=== PATIENT | female | born 1985 | race Caucasian/White ===

== ENCOUNTER 2022-10-02 17:07 | Emergency (ER) | payer BC ==
[2022-10-02 17:37] VITALS: TEMP 98.7
[2022-10-02] MEDS ORDERED: ASPIRIN 81 MG PO STA (18:21)
--- NOTE | 2022-10-02 18:25 | ED ---
General Adult HPI - General Chief complaint: Chest Pain Stated complaint: chest pain Time Seen by Provider: 10/02/22 18:00 Source: patient, RN notes reviewed Mode of arrival: ambulatory Limitations: no limitations - History of Present Illness Initial comments: Patient is a pleasant 37-year-old female presenting to the emergency department with concerns for chest discomfort. Onset of symptoms was this morning. Patient has had multiple episodes of sharp stabbing chest discomfort lasting just a couple seconds. Patient states she has had overdoses been episodes. No associated dyspnea, nausea, or diaphoresis. No history of similar symptoms previously. No calf pain. No leg swelling. Currently patient is symptom-free. - Related Data Home Medications Medication Instructions Recorded Confirmed No Known Home Medications 10/02/22 10/02/22 Allergies Allergy/AdvReac Type Severity Reaction Status Date / Time Iodinated Contrast Media Allergy Rash/Hives Verified 10/02/22 17:57 Review of Systems ROS Statement: Those systems with pertinent positive or pertinent negative responses have been documented in the HPI. ROS Other: All systems not noted in ROS Statement are negative. Constitutional: Denies: fever Eyes: Denies: eye pain ENT: Denies: ear pain Respiratory: Reports: as per HPI. Denies: cough, dyspnea Cardiovascular: Reports: as per HPI. Denies: palpitations Endocrine: Denies: fatigue Gastrointestinal: Denies: abdominal pain Genitourinary: Denies: dysuria Musculoskeletal: Denies: back pain Skin: Denies: rash Neurological: Denies: weakness Past Medical History Additional Past Medical History / Comment(s): back pain History of Any Multi-Drug Resistant Organisms: None Reported Past Surgical History: Section Additional Past Surgical History / Comment(s): hole in heart repaired 2010 [facility] Past Psychological History: No Psychological Hx Reported Smoking Status: Former smoker Past Alcohol Use History: Occasional Past Drug Use History: None Reported General Exam Limitations: no limitations General appearance: alert, in no apparent distress Head exam: Present: normocephalic Eye exam: Present: normal appearance Neck exam: Present: normal inspection Respiratory exam: Present: normal lung sounds bilaterally. Absent: chest wall tenderness Cardiovascular Exam: Present: regular rate, normal rhythm Expanded Peripheral pulses: 2+: Radial (R), Radial (L), Dorsalis Pedis (R), Dorsalis Pedis (L) GI/Abdominal exam: Present: soft. Absent: tenderness Extremities exam: Present: normal inspection. Absent: pedal edema, calf tenderness Neurological exam: Present: alert Psychiatric exam: Present: normal affect, normal mood Skin exam: Present: normal color Course Vital Signs 10/02/22 10/02/22 10/02/22 17:30 17:45 18:41 Temperature 98.7 F Pulse Rate 92 99 Pulse Rate [ 78 Director Of Special Education ] Respiratory 18 16 Rate Blood Pressure 144/83 117/61 O2 Sat by Pulse 100 97 Oximetry EKG Findings - EKG Results: EKG: interpreted by JUDED (right axis), sinus rhythm, normal QRS, normal ST/T Medical Decision Making - Medical Decision Making Was pt. sent in by a medical professional or institution (, PA, WAGON DRILLER, urgent care, hospital, or fdc...) When possible be specific @ -[No] Did you speak to anyone other than the patient for history (EMS, parent, family, police, friend...)? What history was obtained from this source @ -[No] Did you review nursing and triage notes (agree or disagree)? Why? @ -[I reviewed and agree with nursing and triage notes] Were old charts reviewed (outside hosp., previous admission, EMS record, old EKG, old radiological studies, urgent care reports/EKG's, fdc records)? Report findings @ -[No old charts were reviewed] Differential Diagnosis (chest pain, altered mental status, abdominal pain women, abdominal pain men, vaginal bleeding, weakness, fever, dyspnea, syncope, headache, dizziness, GI bleed, back pain, seizure, CVA, palpatations, mental health, musculoskeletal)? @ -Differential Chest Pain: Stable Angina, Unstable Angina, STEMI, NSTEMI Aortic Dissection, Pneumothorax, Musculoskeletal, Esophageal Spasm GERD, Cholecystitis, Pancreatitis, Zoster, this is not meant to be an all-inclusive list. EKG interpreted by me (3pts min.). @ -[As above] X-rays interpreted by me (1pt min.). @ -Chest x-ray shows no acute process CT interpreted by me (1pt min.). @ -[None done] U/S interpreted by me (1pt. min.). @ -[None done] What testing was considered but not performed or refused? (CT, X-rays, U/S, la bs)? Why? @ -[None] What meds were considered but not given or refused? Why? @ -[None] Did you discuss the management of the patient with other professionals (professionals i.e. , PA, WAGON DRILLER, lab, RT, psych nurse, high school social studies teacher, manager of pmo, teacher, motor equipment commanding officer, bilingual patient support caseworker)? Give summary @ -[No] Was smoking cessation discussed for >3mins.? @ -[No] Was critical care preformed (if so, how long)? @ -[No] Were there social determinants of health that impacted care today? How? (Homelessness, low income, unemployed, alcoholism, drug addiction, transportation, low edu. Level, literacy, decrease access to med. care, penitentiary, rehab)? @ -[No] Was there de-escalation of care discussed even if they declined (Discuss DNR or withdrawal of care, Hospice)? DNR status @ -[No] What co-morbidities impacted this encounter? (DM, HTN, Smoking, COPD, CAD, Cancer, CVA, ARF, Chemo, Hep., AIDS, mental health diagnosis, sleep apnea, morbid obesity)? @ -[None] Was patient admitted / discharged? Hospital course, mention meds given and route, prescriptions, significant lab abnormalities, going to OR and other pe rtinent info. @ -Patient presents with atypical chest pain, feeling like electrical shock and lasting only seconds. Patient reevaluated and resting comfortably in bed, symptom-free. Patient updated on results and need for follow-up. Heart score 0. 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 Undiagnosed new problem with uncertain prognosis? @ -[No] Drug Therapy requiring intensive monitoring for toxicity (Heparin, Nitro, Insulin, Cardizem)? @ -[No] Were any procedures done? @ -[No] Diagnosis/symptom? @ -Chest pain Acute, or Chronic, or Acute on Chronic? @ -Acute Uncomplicated (without systemic symptoms) or Complicated (systemic symptoms)? @ -[default] Side effects of treatment? @ -[No] Exacerbation, Progression, or Severe Exacerbation? @ -[No] Poses a threat to life or bodily function? How? (Chest pain, USA, [place], pneumonia, PE, COPD, DKA, ARF, appy, cholecystitis, CVA, Diverticulitis, Homicidal, Suicidal, threat to staff... and all critical care pts) @ -[No] - Lab Data Result diagrams: 10/02/22 18:39 10/02/22 18:39 Lab Results 10/02/22 10/02/22 10/02/22 Range/Units 18:39 18:39 18:39 WBC 9.7 (3.8-10.6) k/uL RBC 5.25 (3.80-5.40) m/uL Hgb 15.7 (11.4-16.0) gm/dL Hct 45.1 (34.0-46.0) % MCV 86.0 (80.0-100.0) fL MCH 29.9 (25.0-35.0) pg MCHC 34.7 (31.0-37.0) g/dL RDW 12.7 (11.5-15.5) % Plt Count 319 (150-450) k/uL MPV 7.1 Neutrophils % 64 % Lymphocytes % 26 % Monocytes % 6 % Eosinophils % 2 % Basophils % 1 % Neutrophils # 6.2 (1.3-7.7) k/uL Lymphocytes # 2.5 (1.0-4.8) k/uL Monocytes # 0.5 (0-1.0) k/uL Eosinophils # 0.2 (0-0.7) k/uL Basophils # 0.1 (0-0.2) k/uL PT 10.0 (9.0-12.0) sec INR 0.9 (<1.2) APTT 26.0 (22.0-30.0) sec D-Dimer 0.42 (<0.60) mg/L FEU Sodium 139 (137-145) mmol/L Potassium 4.0 (3.5-5.1) mmol/L Chloride 104 (98-107) mmol/L Carbon Dioxide 25 (22-30) mmol/L Anion Gap 10 mmol/L BUN 11 (7-17) mg/dL Creatinine 0.62 (0.52-1.04) mg/dL Est GFR (CKD-EPI)AfAm >90 (>60 ml/min/1.73 sqM) Est GFR (CKD-EPI)NonAf >90 (>60 ml/min/1.73 sqM) Glucose 94 (74-99) mg/dL Calcium 9.7 (8.4-10.2) mg/dL Magnesium 2.0 (1.6-2.3) mg/dL Total Bilirubin 0.5 (0.2-1.3) mg/dL AST 29 (14-36) U/L ALT 28 (4-34) U/L Alkaline Phosphatase 107 (38-126) U/L Troponin I (0.000-0.034) ng/mL Total Protein 8.7 H (6.3-8.2) g/dL Albumin 4.9 (3.5-5.0) g/dL 10/02/22 Range/Units 18:39 WBC (3.8-10.6) k/uL RBC (3.80-5.40) m/uL Hgb (11.4-16.0) gm/dL Hct (34.0-46.0) % MCV (80.0-100.0) fL MCH (25.0-35.0) pg MCHC (31.0-37.0) g/dL RDW (11.5-15.5) % Plt Count (150-450) k/uL MPV Neutrophils % % Lymphocytes % % Monocytes % % Eosinophils % % Basophils % % Neutrophils # (1.3-7.7) k/uL Lymphocytes # (1.0-4.8) k/uL Monocytes # (0-1.0) k/uL Eosinophils # (0-0.7) k/uL Basophils # (0-0.2) k/uL PT (9.0-12.0) sec INR (<1.2) APTT (22.0-30.0) sec D-Dimer (<0.60) mg/L FEU Sodium (137-145) mmol/L Potassium (3.5-5.1) mmol/L Chloride (98-107) mmol/L Carbon Dioxide (22-30) mmol/L Anion Gap mmol/L BUN (7-17) mg/dL Creatinine (0.52-1.04) mg/dL Est GFR (CKD-EPI)AfAm (>60 ml/min/1.73 sqM) Est GFR (CKD-EPI)NonAf (>60 ml/min/1.73 sqM) Glucose (74-99) mg/dL Calcium (8.4-10.2) mg/dL Magnesium (1.6-2.3) mg/dL Total Bilirubin (0.2-1.3) mg/dL AST (14-36) U/L ALT (4-34) U/L Alkaline Phosphatase (38-126) U/L Troponin I <0.012 (0.000-0.034) ng/mL Total Protein (6.3-8.2) g/dL Albumin (3.5-5.0) g/dL Disposition Clinical Impression: Chest pain Disposition: HOME SELF-CARE Condition: Stable Instructions (If sedation given, give patient instructions): Chest Pain (ED) Additional Instructions: Please do follow-up to primary care physician in the next day or 2 for recheck. Please also follow-up with your roofing plant supervisor. Return for increased pain, [place] or worsening symptoms or any other concerns. Is patient prescribed a controlled substance at d/c from ED?: No Referrals: Len Eldridge MD [STAFF PHYSICIAN] - 1-2 days Randolph Machuca MD [STAFF PHYSICIAN] - 1-2 days Time of Disposition: 19:50
--- NOTE | 2022-10-02 18:54 | XR ---
EXAMINATION TYPE: XR chest 2V DATE OF EXAM: 10/02/2022 6:50 PM COMPARISON: None TECHNIQUE: XR chest 2V . CLINICAL INDICATION:Female, 37 years old with history of Chest Pain; FINDINGS: Lungs/Pleura: There is no evidence of pleural effusion, focal consolidation, or pneumothorax. Pulmonary vascularity: Unremarkable. Heart/mediastinum: Cardiomediastinal silhouette is unremarkable. Musculoskeletal: Multiple level degenerative disc disease changes seen throughout the spine. IMPRESSION: No acute cardiopulmonary disease/process.
[2022-10-02 19:14] LABS: INR 0.9 (<1.2)
[2022-10-02 19:15] LABS: ALT 28 U/L (4-34); AST 29 U/L (14-36); African American GFR (CKD) >90 (>60 ml/min/1.73 sqM); Albumin 4.9 g/dL (3.5-5.0); Alkaline Phosphatase 107 U/L (38-126); Anion Gap 10 mmol/L; Blood Urea Nitrogen 11 mg/dL (7-17); Calcium 9.7 mg/dL (8.4-10.2); Carbon Dioxide 25 mmol/L (22-30); Chloride 104 mmol/L (98-107); Glucose 94 mg/dL (74-99); Non-African American GFR(CKD) >90 (>60 ml/min/1.73 sqM); Sodium 139 mmol/L (137-145); Total Bilirubin 0.5 mg/dL (0.2-1.3); Total Protein 8.7 g/dL (6.3-8.2)
[2022-10-02 19:29] LABS: Basophils # (A) 0.1 k/uL (0-0.2); Basophils % (A) 1 %; Eosinophils # (A) 0.2 k/uL (0-0.7); Eosinophils % (A) 2 %; HCT 45.1 % (34.0-46.0); HGB 15.7 gm/dL (11.4-16.0); Lymphocytes # (A) 2.5 k/uL (1.0-4.8); Lymphocytes % (A) 26 %; MCH 29.9 pg (25.0-35.0); MCHC 34.7 g/dL (31.0-37.0); Mean Platelet Volume 7.1; Monocytes # (A) 0.5 k/uL (0-1.0); Monocytes % (A) 6 %; Neutrophils # (A) 6.2 k/uL (1.3-7.7); Neutrophils % (A) 64 %; Platelet Count 319 k/uL (150-450); RBC 5.25 m/uL (3.80-5.40); RDW 12.7 % (11.5-15.5); WBC 9.7 k/uL (3.8-10.6)
[2022-10-02 20:23] VITALS: BP 104/66; PULSE 94; RESP 18
== END 2022-10-02 20:23 | disposition home or self-care (01) ==
LOC: EC 17:07
DX: R07.89 Other chest pain (principal); Z87.891 Personal history of nicotine dependence; Z91.041 Radiographic dye allergy status
CPT/HCPCS: 36415; 71046; 80053; 83735; 84484; 85025; 85379; 85610; 85730; 93005; 99285

== ENCOUNTER 2022-11-02 08:16 | Emergency (ER) | payer BC ==
[2022-11-02] MEDS ORDERED: ACETAMINOPHEN TAB 500 MG TAB PO STA (08:41)
--- NOTE | 2022-11-02 08:51 | ED ---
General Adult HPI - General Chief complaint: Fever Stated complaint: High Heart Rate, Flu Symptoms Time Seen by Provider: 11/02/22 08:20 Source: patient, RN notes reviewed, old records reviewed Mode of arrival: ambulatory Limitations: no limitations - History of Present Illness Initial comments: This is a 37-year-old female presents emergency department stating that for the last 2 days she's had a sore throat and a bit of a cough. Patient states she's also felt that she's had fever heart rate was 120 earlier today per patient states she took Motrin prior to coming in. Patient states her daughter was diagnosed with influenza on Saturday and she thinks she has the flu as well. Patient states she's never had the flu or cold in the past. Patient denies any shortness of breath or difficulty breathing. Patient denies any abdominal pain palpitations nausea or vomiting. - Related Data Home Medications Medication Instructions Recorded Confirmed No Known Home Medications 10/02/22 10/02/22 Allergies Allergy/AdvReac Type Severity Reaction Status Date / Time Iodinated Contrast Media Allergy Rash/Hives Verified 11/02/22 08:23 Review of Systems ROS Statement: Those systems with pertinent positive or pertinent negative responses have been documented in the HPI. ROS Other: All systems not noted in ROS Statement are negative. Past Medical History Additional Past Medical History / Comment(s): back pain History of Any Multi-Drug Resistant Organisms: None Reported Past Surgical History: Section Additional Past Surgical History / Comment(s): hole in heart repaired 2010 [facility] Past Psychological History: No Psychological Hx Reported Smoking Status: Former smoker Past Alcohol Use History: Occasional Past Drug Use History: None Reported General Exam - General Exam Comments Initial Comments: GENERAL: Patient is well-developed and well-nourished. Patient is nontoxic and well- hydrated and is in mild distress. ENT: Neck is soft and supple. No significant lymphadenopathy is noted. Oropharynx is clear. Moist mucous membranes. Neck has full range of motion without eliciting any pain. EYES: The sclera were anicteric and conjunctiva were pink and moist. Extraocular movements were intact and pupils were equal round and reactive to light. Eyelids were unremarkable. PULMONARY: Unlabored respirations. Good breath sounds bilaterally. No audible rales rhonchi or wheezing was noted. CARDIOVASCULAR: There is a regular rate and rhythm without any murmurs gallops or rubs. ABDOMEN: Soft and nontender with normal bowel sounds. SKIN: Skin is clear with no lesions or rashes and otherwise unremarkable. NEUROLOGIC: Patient is alert and oriented x3. Cranial nerves II through XII are grossly intact. Motor and sensory are also intact. Normal speech, volume and content. Symmetrical smile. Cerebellar exam grossly intact. MUSCULOSKELETAL: Normal extremities with adequate strength and full range of motion. LYMPHATICS: No significant lymphadenopathy is noted PSYCHIATRIC: Normal psychiatric evaluation. Limitations: no limitations Course Vital Signs 11/02/22 11/02/22 08:17 09:56 Temperature 99.6 F 98.3 F Pulse Rate 123 H 108 H Respiratory 18 19 Rate Blood Pressure 109/76 107/74 O2 Sat by Pulse 96 96 Oximetry Medical Decision Making - Medical Decision Making Was pt. sent in by a medical professional or institution (, PA, CARE ADVOCATE, urgent care, hospital, or skilled nursing...) When possible be specific @ -No Did you speak to anyone other than the patient for history (EMS, parent, family, police, friend...)? What history was obtained from this source @ -No Did you review nursing and triage notes (agree or disagree)? Why? @ -I reviewed and agree with nursing and triage notes Were old charts reviewed (outside hosp., previous admission, EMS record, old EKG, old radiological studies, urgent care reports/EKG's, skilled nursing records)? Report findings @ -No old charts were reviewed Differential Diagnosis (chest pain, altered mental status, abdominal pain women, abdominal pain men, vaginal bleeding, weakness, fever, dyspnea, syncope, headache, dizziness, GI bleed, back pain, seizure, CVA, palpatations, mental health, musculoskeletal)? @ -COVID, influenza, upper respiratory infection EKG interpreted by me (3pts min.). @ -As above X-rays interpreted by me (1pt min.). @ -Chest X-ray showed no acute abnormality CT interpreted by me (1pt min.). @ -None done U/S interpreted by me (1pt. min.). @ -None done What testing was considered but not performed or refused? (CT, X-rays, U/S, labs)? Why? @ -None What meds were considered but not given or refused? Why? @ -None Did you discuss the management of the patient with other professionals (professionals i.e. , PA, CARE ADVOCATE, lab, RT, psych nurse, social science instructor, bus info consultant, teacher, police patrol officer, case assembler)? Give summary @ -No Was smoking cessation discussed for >3mins.? @ -No Was critical care preformed (if so, how long)? @ -No Were there social determinants of health that impacted care today? How? (Homelessness, low income, unemployed, alcoholism, drug addiction, transportation, low edu. Level, literacy, decrease access to med. care, intermediate, rehab)? @ -No Was there de-escalation of care discussed even if they declined (Discuss DNR or withdrawal of care, Hospice)? DNR status @ -No What co-morbidities impacted this encounter? (DM, HTN, Smoking, COPD, CAD, Cancer, CVA, ARF, Chemo, Hep., AIDS, mental health diagnosis, sleep apnea, morbid obesity)? @ -None Was patient admitted / discharged? Hospital course, mention meds given and route, prescriptions, significant lab abnormalities, going to OR and other pertinent info. @ -Influenza a was positive. Patient's chest x-ray showed no acute abnormality. Patient was given Tylenol emergency department. Undiagnosed new problem with uncertain prognosis? @ -No Drug Therapy requiring intensive monitoring for toxicity (Heparin, Nitro, Insulin, Cardizem)? @ -No Were any procedures done? @ -No Diagnosis/symptom? @ -Influenza A Acute, or Chronic, or Acute on Chronic? @ -Acute Uncomplicated (without systemic symptoms) or Complicated (systemic symptoms)? @ -Uncomplicated Side effects of treatment? @ -No Exacerbation, Progression, or Severe Exacerbation? @ -No Poses a threat to life or bodily function? How? (Chest pain, USA, [place], pneumonia, PE, COPD, DKA, ARF, appy, cholecystitis, CVA, Diverticulitis, Homicidal, Suicidal, threat to staff... and all critical care pts) @ -No - Lab Data Lab Results 11/02/22 Range/Units 08:40 Influenza Type A (PCR) Detected A (Not Detectd) Influenza Type B (PCR) Not Detected (Not Detectd) RSV (PCR) Not Detected (Not Detectd) SARS-CoV-2 (PCR) Not Detected (Not Detectd) Disposition Clinical Impression: Influenza Disposition: HOME SELF-CARE Condition: Good Instructions (If sedation given, give patient instructions): Influenza (ED) Is patient prescribed a controlled substance at d/c from ED?: No Referrals: Cyril Villar MD [Primary Care Provider] - 1-2 days Time of Disposition: 10:04
--- NOTE | 2022-11-02 09:14 | XR ---
EXAMINATION TYPE: XR chest 2V DATE OF EXAM: 11/02/2022 COMPARISON: 10/02/2022 TECHNIQUE: PA and lateral views submitted. HISTORY: Fever FINDINGS: The lungs are clear and there is no pneumothorax, pleural effusion, or focal pneumonia. Heart size normal and no overt failure. Osseous structures demonstrate hypertrophic and degenerative changes of the spine. Postsurgical change involving the heart is stable. There is a linear calcification in the right lung. IMPRESSION: 1. No acute process.
[2022-11-02 09:57] VITALS: BP 107/74; PULSE 108; RESP 19; TEMP 98.3
== END 2022-11-02 10:16 | disposition home or self-care (01) ==
LOC: EC 08:16
DX: J10.1 Influenza due to other identified influenza virus with other respiratory manifestations (principal); Z87.891 Personal history of nicotine dependence; Z91.041 Radiographic dye allergy status; Z20.822 Contact with and (suspected) exposure to COVID-19
CPT/HCPCS: 71046; 87636; 99283

== ENCOUNTER 2023-06-23 07:57 | Observation (INO) | payer BC ==
--- NOTE | 2023-06-23 08:27 | ED ---
Chest Pain HPI - General Chief Complaint: Chest Pain Stated Complaint: chest pain Time Seen by Provider: 06/23/23 08:06 Source: patient, RN notes reviewed Mode of arrival: ambulatory Limitations: no limitations - History of Present Illness Initial Comments: 37-year-old female presents emergency department chief complaint of chest pressure. She states she has had some intermittent episodes over the last 4 to 5 hours. Patient states that it is central left-sided she had some achiness in her left arm and achiness of her arm and heaviness. Patient states that this pain awoke her up out of her sleep. Patient states that nothing makes the pain feel better or worse. States pain otherwise nonradiating she denies any prior cardiac disease including hypertension, hyperlipidemia diabetes she does not take any current medication she did take an 81 mg aspirin this morning because of the symptoms. She states she drove back from [place] yesterday and was concerned that she had some left calf pain. She denies any history of DVT or PE. - Related Data Home Medications Medication Instructions Recorded Confirmed No Known Home Medications 10/02/22 10/02/22 Allergies Allergy/AdvReac Type Severity Reaction Status Date / Time Iodinated Contrast Media Allergy Rash/Hives Verified 06/23/23 08:17 Review of Systems ROS Statement: Those systems with pertinent positive or pertinent negative responses have been documented in the HPI. ROS Other: All systems not noted in ROS Statement are negative. EKG Findings - EKG Comments: EKG Findings:: EKG performed at 8: 24 sinus rhythm with a rate of 84 VA 205 QRS 82 QT/QTc 365/407 inverted T wave in V2 - EKG Results: EKG: interpreted by MUSTAPHA Past Medical History Additional Past Medical History / Comment(s): back pain History of Any Multi-Drug Resistant Organisms: None Reported Past Surgical History: Section Additional Past Surgical History / Comment(s): hole in heart repaired 2010 [facility] Past Psychological History: No Psychological Hx Reported Smoking Status: Vaper Past Alcohol Use History: Occasional Past Drug Use History: None Reported General Exam Limitations: no limitations General appearance: alert, in no apparent distress Head exam: Present: atraumatic, normocephalic, normal inspection Eye exam: Present: normal appearance, PERRL, EOMI. Absent: scleral icterus, conjunctival injection, periorbital swelling Neck exam: Present: normal inspection, full ROM. Absent: tenderness, meningismus, lymphadenopathy Respiratory exam: Present: normal lung sounds bilaterally. Absent: respiratory distress, wheezes, rales, rhonchi, stridor Cardiovascular Exam: Present: regular rate, normal rhythm, normal heart sounds. Absent: systolic murmur, diastolic murmur, rubs, gallop, clicks GI/Abdominal exam: Present: soft, normal bowel sounds. Absent: distended, tenderness, guarding, rebound, rigid Extremities exam: Absent: pedal edema, calf tenderness Neurological exam: Present: alert, oriented X3 Skin exam: Present: warm, dry, intact, normal color. Absent: rash Course Vital Signs 06/23/23 06/23/23 06/23/23 08:14 08:22 10:12 Temperature 98 F Pulse Rate 88 95 Pulse Rate [ 84 Stepdown Nurse ] Respiratory 18 16 Rate Blood Pressure 110/77 120/82 O2 Sat by Pulse 98 Oximetry Chest Pain MDM - MDM Was pt. sent in by a medical professional or institution (, PA, COMPONENT DESIGN ENGINEER, urgent care, hospital, or prison...) When possible be specific @ -No Did you speak to anyone other than the patient for history (EMS, parent, family, police, friend...)? What history was obtained from this source @ -No Did you review nursing and triage notes (agree or disagree)? Why? @ -I reviewed and agree with nursing and triage notes Were old charts reviewed (outside hosp., previous admission, EMS record, old EKG, old radiological studies, urgent care reports/EKG's, prison records)? Report findings @ -No old charts were reviewed Differential Diagnosis (chest pain, altered mental status, abdominal pain women, abdominal pain men, vaginal bleeding, weakness, fever, dyspnea, syncope, headache, dizziness, GI bleed, back pain, seizure, CVA, palpatations, mental health, musculoskeletal)? @ -Differential Chest Pain: Stable Angina, Unstable Angina, STEMI, NSTEMI Aortic Dissection, Pneumothorax, M usculoskeletal, Esophageal Spasm GERD, Cholecystitis, Pancreatitis, Zoster, this is not meant to be an all-inclusive list. EKG interpreted by me (3pts min.). @ -As above X-rays interpreted by me (1pt min.). @ -Chest x-ray shows no acute cardiopulmonary process. CT interpreted by me (1pt min.). @ -CT angio chest shows no acute PE or acute malady. U/S interpreted by me (1pt. min.). @ -None done What testing was considered but not performed or refused? (CT, X-rays, U/S, labs)? Why? @ -None What meds were considered but not given or refused? Why? @ -None Did you discuss the management of the patient with other professionals (professionals i.e. DrKathy, PA, COMPONENT DESIGN ENGINEER, lab, RT, psych nurse, social work specialist, tail end rider, teacher, motorcycle police officer, corrections caseworker)? Give summary @ -Dr. Dominguez for admission for chest pain rule out Was smoking cessation discussed for >3mins.? @ -No Was critical care preformed (if so, how long)? @ -No Were there social determinants of health that impacted care today? How? (Homelessness, low income, unemployed, alcoholism, drug addiction, transportation, low edu. Level, literacy, decrease access to med. care, longterm, rehab)? @ -No Was there de-escalation of care discussed even if they declined (Discuss DNR or withdrawal of care, Hospice)? DNR status @ -No What co-morbidities impacted this encounter? (DM, HTN, Smoking, COPD, CAD, Cancer, CVA, ARF, Chemo, Hep., AIDS, mental health diagnosis, sleep apnea, morbid obesity)? @ -Family cardiac history Was patient admitted / discharged? Hospital course, mention meds given and route, prescriptions, significant lab abnormalities, going to OR and other pertinent info. @ -Admitted patient be admitted for echocardiogram, cardiology evaluation, repeat troponin as she has a concerning ACS story patient will have full workup and rule out. Undiagnosed new problem with uncertain prognosis? @ -No Drug Therapy requiring intensive monitoring for toxicity (Heparin, Nitro, Insulin, Cardizem)? @ -No Were any procedures done? @ -No Diagnosis/symptom? @ -Chest pain Acute, or Chronic, or Acute on Chronic? @ -Acute Uncomplicated (without systemic symptoms) or Complicated (systemic symptoms)? @ -Complicated Side effects of treatment? @ -No Exacerbation, Progression, or Severe Exacerbation? @ -No Poses a threat to life or bodily function? How? (Chest pain, [place], [place], pneumonia, PE, COPD, DKA, ARF, appy, cholecystitis, CVA, Diverticulitis, Homicidal, Suicidal, threat to staff... and all critical care pts) @ -Yes possible underlying ACS Disposition Clinical Impression: Chest pain Disposition: ADMITTED IP TO THIS HOSP Referrals: Cyril Villar MD [Primary Care Provider] - 1-2 days Time of Disposition: 12:26
[2023-06-23] MEDS: ASPIRIN 81 MG PO STA (08:42)
[2023-06-23 08:50] LABS: Basophils # (A) 0.1 k/uL (0-0.2); Basophils % (A) 1 %; Eosinophils # (A) 0.2 k/uL (0-0.7); Eosinophils % (A) 3 %; HCT 41.3 % (34.0-46.0); HGB 14.2 gm/dL (11.4-16.0); Lymphocytes # (A) 1.9 k/uL (1.0-4.8); Lymphocytes % (A) 32 %; MCH 29.7 pg (25.0-35.0); MCHC 34.3 g/dL (31.0-37.0); MCV 86.5 fL (80.0-100.0); Mean Platelet Volume 7.1; Monocytes # (A) 0.5 k/uL (0-1.0); Monocytes % (A) 8 %; Neutrophils # (A) 3.1 k/uL (1.3-7.7); Neutrophils % (A) 53 %; Platelet Count 386 k/uL (150-450); RBC 4.77 m/uL (3.80-5.40); WBC 5.9 k/uL (3.8-10.6)
[2023-06-23 09:05] LABS: Partial Thromboplastin Time 26.3 sec (22.0-30.0); Prothrombin Time 10.7 sec (10.0-12.5)
--- NOTE | 2023-06-23 09:05 | XR ---
EXAMINATION TYPE: XR chest 2V DATE OF EXAM: 06/23/2023 COMPARISON: 11/02/2022 HISTORY: Chest pain TECHNIQUE: Frontal and lateral views of the chest are obtained. FINDINGS: There is no focal air space opacity. No evidence for pneumothorax. No pleural effusion. The cardiac silhouette size is within normal limits. The osseous structures are grossly intact. IMPRESSION: 1. No acute cardiopulmonary process.
[2023-06-23 09:18] LABS: ALT 70 U/L (4-34); AST 50 U/L (14-36); African American GFR (CKD) >90 (>60 ml/min/1.73 sqM); Albumin 4.2 g/dL (3.5-5.0); Alkaline Phosphatase 81 U/L (38-126); Anion Gap 6 mmol/L; Blood Urea Nitrogen 10 mg/dL (7-17); Calcium 9.3 mg/dL (8.4-10.2); Carbon Dioxide 27 mmol/L (22-30); Chloride 107 mmol/L (98-107); Glucose 97 mg/dL (74-99); Non-African American GFR(CKD) >90 (>60 ml/min/1.73 sqM); Potassium 4.3 mmol/L (3.5-5.1); Sodium 140 mmol/L (137-145); Total Bilirubin 0.5 mg/dL (0.2-1.3); Total Protein 7.3 g/dL (6.3-8.2)
[2023-06-23 09:25] LABS: NT-Pro-B-Type Natriuretic Pept 97 pg/mL
--- NOTE | 2023-06-23 09:40 | US ---
EXAMINATION TYPE: US venous doppler duplex LE LT DATE OF EXAM: 06/23/2023 9:31 AM COMPARISON: US CLINICAL INDICATION: Female, 37 years old with history of pain; Left calf pain SIDE PERFORMED: Left TECHNIQUE: The lower extremity deep venous system is examined utilizing real time linear array sonog rita with graded compression, doppler sonography and color-flow sonography. VESSELS IMAGED: Common Femoral Vein Deep Femoral Vein Greater Saphenous Vein * Femoral Vein Popliteal Vein Small Saphenous Vein * Proximal Calf Veins (* superficial vessels) Left Leg: Negative for DVT IMPRESSION: Grayscale, color doppler, spectral doppler imaging performed of the deep veins of the lo wer extremities. There is normal flow, compressibility, vascular waveforms.
[2023-06-23] MEDS: methylPREDNISolone SOD SUCCI 125 MG/2 ML VIAL IV STA (10:14)
[2023-06-23] MEDS: diphenhydrAMINE 50 MG/ML 1 ML VIAL IVP STA (10:15)
[2023-06-23] MEDS: FAMOTIDINE 20 MG/2 ML VIAL IV STA (10:16)
--- NOTE | 2023-06-23 12:09 | CT ---
EXAMINATION TYPE: CT chest angio for PE CT DLP: 229.2 mGycm, Automated exposure control for dose reduction was used. DATE OF EXAM: 06/23/2023 11:46 AM COMPARISON: None. CLINICAL INDICATION:Female, 37 years old with history of pain, elevated D-dimer; Pain, Elevated D-Dim er TECHNIQUE/CONTRAST: CTA scan of the thorax is performed without and with IV Contrast, patient injected with 50 ml mL of I sovue 370, MIP images are created and reviewed these are created on a separate workstation.. FINDINGS: Pulmonary Artery: There is no evidence for a filling defect within the pulmonary vasculature to sugge st acute pulmonary embolism. The pulmonary artery is of normal size. Lungs/Pleura: No evidence of focal consolidation, pleural effusion or pneumothorax. Airway: Large airways are patent. Heart: Heart is within normal limits for size. Vasculature: No evidence of aortic aneurysm. Mediastinum: No gross evidence of adenopathy. Musculoskeletal: No acute osseous abnormalities Soft Tissues: Unremarkable. Lower neck: No significant findings. Upper Abdomen: No significant findings. IMPRESSION: No evidence of pulmonary embolism.
[2023-06-23] MEDS ORDERED: NITROGLYCERIN SL TABS 0.4 MG TAB SUBLINGUAL PRN (12:25)
--- NOTE | 2023-06-23 15:39 | P.HPIM ---
History of Present Illness H&P Date: 06/23/23 History of Presenting Illness: Patient is a very pleasant 37-year-old female with a past medical history of PFO status postrepair in 2010 and isolated episode of SVT in 2019. She follows with [facility] out of [facility]. She presented to the emergency department with a chief complaint of chest pain/pressure. Patient reports this began around 2 AM awakening her from sleep with a feeling of a sudden squeezing/pressure sensation deep into her left chest accompanied by left arm pain and heaviness. Patient reports she got up and drink some water and repo sitioned herself a bit in bed and was able to fall back asleep but again awoken with this same pain/discomfort so she got up and took an aspirin. She denies anything making this pain better or worse and denies any other associated symptoms other than the left arm achiness and heaviness. She denies having dizziness, lightheadedness, palpitations, shortness of breath, cough or congestion, abdominal pain, nausea, vomiting, or experiencing any numbness/tingling/weakness/swelling in her extremities. She does report just returning from vacation in [place] [facility] and during this vacation also having episodes of chest pain/pressure similar to this but not as severe. Patient reports she was evaluated at a facility there and diagnosed with costochondritis but states the pain she is experiencing today is much worse and deeper inside of her chest and describes it as a pressure-like squeezing sensation so she came to the ER for evaluation. Upon arrival to our facility patient underwent evaluation in the emergency department. Vital signs upon arrival show blood pressure 110/77, heart rate 88, respiratory rate 18, temp 98.0 F, and SpO2 of 98% on room air. EKG completed showing normal sinus rhythm at 84 bpm with no noted T wave or ST abnormalities showing no signs of acute ischemia upon personal review and interpretation. Chest x-ray was negative for acute cardiopulmonary process. Left lower extremity Doppler negative for DVT. Labs were completed and reviewed. CBC was unremarkable. BMP normal findings. Liver profile showing elevated AST of 50 and ALT of 70. Troponin was negative at less than 0.012. proBNP 97. D-dimer was elevated at 0.64. CTA chest then completed negative for acute pulmonary emboli. Patient was admitted under our services with consultation to cardiology. Review of systems: Pertinent positives and negatives as discussed in HPI, a complete review of systems was performed and all other systems are negative. Physical exam: Vital signs reviewed and stable. General: Nontoxic, no distress and appears stated age. Derm: Skin warm and dry, normal coloration for ethnicity. Head: Atraumatic, normocephalic and symmetric. Eyes: EOMs intact, no lid lag, and anicteric sclera Mouth: no lip lesions, mucus membranes moist Cardiovascular: regular rate and rhythm with normal S1S2, no murmur, positive posterior tibial pulses bilaterally, and cap refill < 2 seconds. Lungs: Respirations even, regular, and unlabored on room air. Lungs CTA bilate rally, no rhonchi, no rales, no wheezing, and no accessory muscle usage. Abdominal: soft, nontender to palpation, no guarding, no appreciable organomegaly Ext: ROM intact. No gross muscle atrophy, no edema, no contractures Neuro: Speech clear, face symmetrical and CN II-XII grossly intact with no noted focal neuro deficits Psych: Alert and oriented to person, place, time, and situation. Appropriate and pleasant affect. Assessment and Plan of Care: Chest pain, rule out acute coronary event Elevated D-dimer, PE ruled out History of PFO status postrepair History of SVT -Cardiology consulted, appreciate recommendations -Telemetry monitoring -Trend troponins -Cardiac diet -Aspirin 81 mg daily -Lipid profile with a.m. labs. -Echocardiogram -Obtain a TSH with free T4 The patient is admitted with an anticipated less than 2 midnight stay for evaluation of chest pain CODE STATUS: Full code DVT prophylaxis: Heparin Anticipated discharge date: Likely within the next [address]: Home Patient was seen independently by Nurse Practitioner. This document was prepared using [employer] dictation software. Please allow for errors in bridge inspector while rare they do occur. I reviewed the documentation as provided by the ALANA above, who is the original author of this note. I agree with the documented assessment and plan, with the following changes: none Past Medical History Additional Past Medical History / Comment(s): back pain History of Any Multi-Drug Resistant Organisms: None Reported Past Surgical History: Section Additional Past Surgical History / Comment(s): hole in heart repaired 2010 [facility] Past Psychological History: No Psychological Hx Reported Smoking Status: Vaper Past Alcohol Use History: Occasional Past Drug Use History: None Reported Medications and Allergies Home Medications Medication Instructions Recorded Confirmed Type No Known Home Medications 10/02/22 06/23/23 History Allergies Allergy/AdvReac Type Severity Reaction Status Date / Time Iodinated Contrast Media Allergy Rash/Hives Verified 06/23/23 12:54 Physical Exam Osteopathic Statement: *. No significant issues noted on an osteopathic structural exam other than those noted in the History and Physical/Consult. Vitals: Vital Signs Temp Pulse Pulse Resp BP Pulse Ox 06/23/23 13:18 102 H 14 118/81 96 06/23/23 10:12 95 16 120/82 06/23/23 08:22 84 06/23/23 08:14 98 F 88 18 110/77 98 Intake and Output 06/22/23 06/23/23 06/23/23 22:59 06:59 14:59 Other: Weight 61.689 kg Results CBC & Chem 7: 06/23/23 08:40 06/23/23 08:40 Labs: Abnormal Lab Results - Last 24 Hours (Table) 06/23/23 06/23/23 Range/Units 08:40 08:40 D-Dimer 0.64 H (<0.60) mg/L FEU AST 50 H (14-36) U/L ALT 70 H (4-34) U/L
[2023-06-23] MEDS: HEPARIN SODIUM,PORCINE 5,000 UNIT/ML 1 ML VIAL SQ SCH (17:16)
[2023-06-23] MEDS: KETOROLAC 15 MG/ML 1 ML VIAL IVP STA (17:16)
[2023-06-23 21:05] VITALS: RESP 16
[2023-06-24 09:00] LABS: Chol/HDL Ratio 4.86 Ratio; LDL Cholesterol,Calculated 152.7 mg/dL (0.0-131.0); VLDL Calculation 12.46 mg/dL (5.00-40.00)
[2023-06-24] MEDS ORDERED: ASPIRIN 325 MG TAB PO SCH (09:00)
[2023-06-24 10:07] VITALS: BP 107/68; PULSE 91; TEMP 97.8
[2023-06-24] MEDS: ASPIRIN 81 MG PO SCH (11:33)
--- NOTE | 2023-06-24 11:50 | CA ---
Transthoracic Echo Report Name: Dennis Ndiaye Age: 37 Gender: F : 1985 Exam Date: 06/24/2023 09:49 Exam Location: [facility] Ht (in): 62 Wt (lb): 136 Ordering Physician: Shahab Verma PAC Attending/Referring Phys: JOYCE, Luci Flight Tower Dispatcher July Vasquez RDCS Procedure CPT: Indications: Chest Pain Cardiac Hx: Technical Quality: Good Contrast 1: Total Dose (mL): Contrast 2: Total Dose (mL): MEASUREMENTS (Male / Female) Normal Values 2D ECHO LV Diastolic Diameter PLAX 3.5 cm 4.2 - 5.9 / 3.9 - 5.3 cm LV Systolic Diameter PLAX 2.5 cm IVS Diastolic Thickness 0.8 cm 0.6 - 1.0 / 0.6 - 0.9 cm LVPW Diastolic Thickness 0.7 cm 0.6 - 1.0 / 0.6 - 0.9 cm LV Relative Wall Thickness 0.4 RV Internal Dim ED PLAX 2.9 cm LA Systolic Diameter LX 3.0 cm 3.0 - 4.0 / 2.7 - 3.8 cm LV Diastolic Volume MOD BP 51.8 cm??? 67 - 155 / 56 - 104 cm??? LV Systolic Volume MOD BP 19.2 cm??? 22 - 58 / 19 - 49 cm??? LV Ejection Fraction MOD BP 62.8 % >= 55 % LV Cardiac Index MOD BP 1631.4 cm???/min???m??? LV Diastolic Volume MOD 4C 51.8 cm??? LV Systolic Volume MOD 4C 17.6 cm??? LV Ejection Fraction MOD 4C 66.0 % LV Cardiac Index MOD 4C 1717.3 cm???/min???m??? LV Diastolic Length 4C 6.8 cm LV Systolic Length 4C 5.6 cm LV Diastolic Volume MOD 2C 48.8 cm??? LV Systolic Volume MOD 2C 20.7 cm??? LV Ejection Fraction MOD 2C 57.5 % LV Cardiac Index MOD 2C 1406.6 cm???/min???m??? LV Diastolic Length 2C 7.2 cm LV Systolic Length 2C 5.5 cm LA Volume 28.3 cm??? 18 - 58 / 22 - 52 cm??? LA Volume Index 17.1 cm???/m??? 16 - 28 cm???/m??? M-MODE Aortic Root Diameter MM 2.7 cm DOPPLER AV Peak Velocity 126.7 cm/s AV Peak Gradient 6.4 mmHg MV Area PHT 3.0 cm??? Mitral E Point Velocity 64.2 cm/s Mitral A Point Velocity 50.8 cm/s Mitral E to A Ratio 1.3 MV Deceleration Time 250.4 ms TR Peak Velocity 163.8 cm/s TR Peak Gradient 10.7 mmHg Right Ventricular Systolic Press 15.7 mmHg FINDINGS Left Ventricle Left ventricular ejection fraction is estimated at 60-65 %. Small left ventricular cavity. Left ventricular wall thickness normal. Normal left ventricular wall motion. Right Ventricle Normal right ventricular size. Right ventricular systolic pressure within normal limits. Right Atrium Normal right atrial size. Left Atrium Normal left atrial size. Mitral Valve Structurally normal mitral valve. No mitral stenosis, regurgitation or prolapse. Aortic Valve Aortic valve not well visualized. No aortic valve stenosis or regurgitation. Tricuspid Valve Structurally normal tricuspid valve. Trace to mild tricuspid regurgitation. Pulmonic Valve Structurally normal pulmonic valve. No pulmonic regurgitation. Pericardium No pericardial effusion. Aorta Normal size aortic root and proximal ascending aorta. CONCLUSIONS Normal LV size and systolic function. No significant abnormality on the Doppler exam. No pericardial effusion. No pulmonary hypertension Previewed by: Dr. Valorie Boogie MD (Electronically Signed) Final Date: 24 June 2023 11:49
--- NOTE | 2023-06-24 12:00 | CA ---
Stress Echo Report Dennis Ndiaye Age: 37 Gender: F : 1985 Exam Date: 06/24/2023 10:01 Exam Location: [facility] Ht (in): 62 Wt (lb): 132 Ordering Physician: Valorie Boogie MD ([id number]) Referring Physician: TWILA,, Consumer Banker: July Vasquez RDCS Technologist Procedure CPT: Indication: Chest Pain ICD-9 Codes: Rhythm: Patient History: CHEST PAIN, FAMILY HX OF HEART DISEASE, CURRENT SMOKER/VAPE Cardiac Medications: Medications in past 24 hours: Contrast: Stress Results Protocol: Macario Total dose(mL): Exercise Duration (min:sec): 10:[address] Depression (mm): Angina Score: Black Score: METS: 11.5 Resting HR: 90 Resting BP: 103 / 54 Peak HR: 168 Peak BP: 140 / 63 Max Predicted HR: 181 93 % Max Predicted HR Target HR: 154 Double Product: [id number] Stress Summary: BP Response: Reason for Termination: MAX EXERTION/TARGET HR Cardiac Symptoms: NO SYMPTOMS ECG Analysis Resting ECG: Stress ECG: Arrhythmia: Echo Analysis Resting Echo: Peak Echo Analysis: MEASUREMENTS (Male/Female) Normal Values CONCLUSIONS Baseline EKG revealed a normal sinus rhythm without significant ST and T-wave changes. Patient walked on a standard Macario protocol for 10 minutes 31 seconds and achieved a maximal heart rate of 168 bpm. No anginal symptoms no significant arrhythmia. EKG did not reveal any ST segment changes to indicate ischemia. This is a negative stress test with good exercise capacity Baseline echo images revealed normal wall motion wall thickening of all segments. At peak exercise there was good augmentation of left ventricular wall motion wall thickening of all segments suggesting that there is no evidence of any stress-induced ischemia on this study. Final impression: #1 normal stress test by EKG criteria with good exercise capacity. No evidence of ischemia. #2 normal stress echocardiogram without evidence of ischemia. Dr. Valorie Boogie MD (Electronically Signed) Final Date: 24 June 2023 12:00
--- NOTE | 2023-06-24 12:49 | P.DS ---
Providers Date of admission: 06/23/23 12:56 Expected date of discharge: 06/24/23 Attending physician: Usha Metz DO Consults: 06/23/23 12:25 Consult Physician Urgent Consulting Provider: Wallace Alvarez Consult Reason/Comments: chest pain Do you want consulting provider notified?: Yes Primary care physician: Cyril Villar MD Hospital Course: Discharge Diagnosis: Chest pain, acute coronary event ruled out. Elevated D-dimer, PE ruled out History of PFO status postrepair History of SVT Hospital Course: Patient is a very pleasant 37-year-old female with a past medical history of PFO status postrepair in 2010 and isolated episode of SVT in 2019. She follows with nutrition counselor out of [facility]. She presented to the emergency department with a chief complaint of chest pain/pressure. Patient reports this began around 2 AM awakening her from sleep with a feeling of a sudden squeezing/pressure sensation deep into her left chest accompanied by left arm pain and heaviness. Patient reports she got up and drink some water and repositioned herself a bit in bed and was able to fall back asleep but again awoken with this same pain/discomfort so she got up and took an aspirin. She denies anything making this pain better or worse and denies any other associated symptoms other than the left arm achiness and heaviness. She denies having dizziness, lightheadedness, palpitations, shortness of breath, cough or congestion, abdominal pain, nausea, vomiting, or experiencing any numbness/tingling/weakness/swelling in her extremities. She does report just returning from vacation in [place] and during this vacation also having episodes of chest pain/pressure similar to this but not as severe. Patient reports she was evaluated at a facility there and diagnosed with costochondritis but states the pain she is experiencing today is much worse and deeper inside of her chest and describes it as a pressure-like squeezing sensation so she came to the ER for evaluation. Upon arrival to our facility patient underwent evaluation in the emergency department. Vital signs upon arrival show blood pressure 110/77, heart rate 88, respiratory rate 18, temp 98.0 F, and SpO2 of 98% on room air. EKG completed showing normal sinus rhythm at 84 bpm with no noted T wave or ST abnormalities showing no signs of acute ischemia upon personal review and interpretation. Chest x-ray was negative for acute cardiopulmonary process. Left lower extremity Doppler negative for DVT. Labs were completed and reviewed. CBC was unremarkable. BMP normal findings. Liver profile showing elevated AST of 50 and ALT of 70. Troponin was negative at less than 0.012. proBNP 97. D-dimer was elevated at 0.64. CTA chest then completed negative for acute pulmonary emboli. Patient was admitted under our services with consultation to cardiology. Troponins trended overnight and all were negative at less than 0.012 x 3 draws. TSH drawn resulting at 0.856. Lipid profile showing elevated total cholesterol of 208 and LDL of 152.7. Patient was evaluated by cardiology and taken for stress test. Echocardiogram resulting showing a preserved EF of 60 to 65% with no significant valvular or structural abnormality reported. Patient cleared from cardiac perspective and is medically stable for discharge home at this time. Physical exam: Vital signs reviewed and stable. General: Nontoxic, no distress and appears stated age. Derm: Skin warm and dry, normal coloration for ethnicity. Head: Atraumatic, normocephalic and symmetric. Eyes: EOMs intact, no lid lag, and anicteric sclera Mouth: no lip lesions, mucus membranes moist Cardiovascular: regular rate and rhythm with normal S1S2, no murmur, positive posterior tibial pulses bilaterally, and cap refill < 2 seconds. Lungs: Respirations even, regular, and unlabored on room air. Lungs CTA bilaterally, no rhonchi, no rales, no wheezing, and no accessory muscle usage. Abdominal: soft, nontender to palpation, no guarding, no appreciable organomegaly Ext: ROM intact. No gross muscle atrophy, no edema, no contractures Neuro: Speech clear, face symmetrical and CN II-XII grossly intact with no noted focal neuro deficits Psych: Alert and oriented to person, place, time, and situation. Appropriate and pleasant affect. A total of 31 minutes of time were spent preparing this complex discharge summary. Pt was discharged on 06/24/2023 at 12:48 PM. Patient was seen independently by Nurse Practitioner. This document was prepared using [employer] dictation software. Please allow for errors in chief scientist while rare they do occur. I reviewed the documentation as provided by the ALANA above, who is the original author of this note. I agree with the documented assessment and plan, with the following changes: none Patient Condition at Discharge: Stable Plan - Discharge Summary New Discharge Prescriptions: New Atorvastatin [Lipitor] 20 mg PO DAILY 30 Days #30 tablet Discharge Medication List Atorvastatin [Lipitor] 20 mg PO DAILY 30 Days #30 tablet 06/24/23 [Rx] Follow up Appointment(s)/Referral(s): Valorie Boogie MD [STAFF PHYSICIAN] - 1 Week Cyril Villar MD [Primary Care Provider] - 1-2 days Patient Instructions/Handouts: Noncardiac Chest Pain (DC), Hyperlipidemia (DC) Activity/Diet/Wound Care/Special Instructions: Activity: As tolerated. Take breaks as needed. Diet: Heart healthy and carb consistent diet. Avoid salts, or foods with hidden salts such as canned or boxed foods and frozen dinners. Extra salt makes your heart work harder and traps the fluid in your body for longer. Special Instructions: Take all of your medications as directed and remember to keep all of your doctor's appointments and follow-up as needed. You may follow-up with your nutrition counselor Dr. Nielsen at [facility] or may schedule appointment with [facility] for follow-up in 1 to 2 weeks. Thank you for allowing us to participate in your care, it was truly a pleasure having you for our patient!!! Discharge Disposition: HOME SELF-CARE
--- NOTE | 2023-06-24 15:09 | CONS ---
CONSULTATION HISTORY OF PRESENT ILLNESS: This is a 37-year-old lady who came back from [place] recently. She went to [place], did a lot of walking, had chest pain, went to the emergency room, had evaluation and was unremarkable. She comes in because she has squeezing chest pain randomly, not related to activity. She has a history of PFO closure in the past, details unavailable at [facility]. Her EKG and troponins are normal. Resting comfortably. Pain is atypical. EKG is unremarkable. Physical examination unremarkable. I performed a stress echo. She walked for 10.5 minutes without evidence of ischemia. PAST MEDICAL HISTORY: 1. History of PFO closure. No history of TIA or stroke. 2. Atypical chest pain. Recent evaluation in [place] was unremarkable. 3. History of negative stress test within the last 2 years. PHYSICAL EXAMINATION: VITAL SIGNS: Stable. NECK: No JVD S1, S2 heard normally. LUNGS: Clear. ABDOMEN: Soft, nontender. EXTREMITIES: Lower extremities reveal normal pulses. No edema. NEUROLOGIC: Central nervous system is normal. EKG revealed sinus mechanism, no acute changes. IMPRESSION: 1. Atypical chest pain. 2. History of PFO closure. 3. Negative stress test about 18 months to 2 years ago. RECOMMENDATIONS: The patient has visited the emergency room on 2 occasions in the last 1 week. I am recommending that we perform a stress echo and if this is normal she can go home. Stress echo was indeed performed. She walked for 10.5 minutes. No evidence of ischemia can be discharged and follow up with her ob/gyn nurse in the [place] area. Thank you very much for the consult. MMODL / IJN: [id number] /
== END 2023-06-24 13:55 | disposition home or self-care (01) ==
LOC: EC 07:57 → 6NMEDSUR 12:56
PROVIDERS: ADMIT Internal Medicine; ATTEND Internal Medicine
DX: R07.89 Other chest pain (principal); M79.602 Pain in left arm; R79.89 Other specified abnormal findings of blood chemistry; R74.01 Elevation of levels of liver transaminase levels; E78.00 Pure hypercholesterolemia, unspecified; F17.290 Nicotine dependence, other tobacco product, uncomplicated; Z91.041 Radiographic dye allergy status; Z87.74 Personal history of (corrected) congenital malformations of heart and circulatory system; Z86.79 Personal history of other diseases of the circulatory system; Z82.49 Family history of ischemic heart disease and other diseases of the circulatory system
CPT/HCPCS: 96374; 96375; 99285; 36415; 94760; 93005; 93306; 93351; 85379; 83880; 80061; 80053; 84443; 83735; 84484; 85025; 85610; 85730; 71046; 93971; 71275; G0378 ×2; J1200; J2930; J3490; J1885; Q9967

== ENCOUNTER 2023-11-23 11:46 | Emergency (ER) | payer BC ==
[2023-11-23 11:53] VITALS: TEMP 97.7
--- NOTE | 2023-11-23 12:25 | ED ---
General Adult HPI - General Chief complaint: Chest Pain Stated complaint: Chest and shoulder pain, sinus infection Source: patient, RN notes reviewed, old records reviewed Mode of arrival: ambulatory Limitations: no limitations - History of Present Illness Initial comments: 38-year-old female presenting with central chest pain over the past 24 hours. Patient has had cough and cold symptoms with nasal congestion over the past 3 weeks. She does have previous history of chest pain which was diagnosed as costochondritis. She reports bilateral calf tenderness and had recent travel. Had subjective fever as well. - Related Data Previous Rx's Medication Instructions Recorded Atorvastatin [Lipitor] 20 mg PO DAILY 30 Days #30 tablet 06/24/23 Allergies Allergy/AdvReac Type Severity Reaction Status Date / Time Iodinated Contrast Media Allergy Rash/Hives Verified 11/23/23 11:52 Review of Systems ROS Statement: Those systems with pertinent positive or pertinent negative responses have been documented in the HPI. ROS Other: All systems not noted in ROS Statement are negative. Past Medical History Past Medical History: Musculoskeletal Disorder Additional Past Medical History / Comment(s): back pain History of Any Multi-Drug Resistant Organisms: None Reported Past Surgical History: Section Additional Past Surgical History / Comment(s): hole in heart repaired 2010 [facility] Past Psychological History: No Psychological Hx Reported Smoking Status: Vaper Past Alcohol Use History: Occasional Past Drug Use History: None Reported General Exam Limitations: no limitations General appearance: alert, in no apparent distress Head exam: Present: atraumatic, normocephalic Eye exam: Present: normal appearance, PERRL ENT exam: Present: normal exam Neck exam: Present: normal inspection. Absent: tenderness, meningismus Respiratory exam: Present: normal lung sounds bilaterally. Absent: respiratory distress, wheezes Cardiovascular Exam: Present: regular rate, normal rhythm GI/Abdominal exam: Present: soft. Absent: distended, tenderness, guarding Extremities exam: Present: normal inspection, normal capillary refill Neurological exam: Present: alert, oriented X3, CN II-XII intact. Absent: motor sensory deficit Psychiatric exam: Present: normal affect, normal mood Skin exam: Present: warm, dry, intact. Absent: cyanosis, diaphoretic Course Vital Signs 11/23/23 11/23/23 11/23/23 11:50 12:39 13:00 Temperature 97.7 F Pulse Rate 88 88 90 Respiratory 20 Rate Blood Pressure 111/78 103/80 O2 Sat by Pulse 100 99 94 L Oximetry 11/23/23 11/23/23 13:30 14:00 Temperature Pulse Rate 89 81 Respiratory 18 Rate Blood Pressure 110/79 107/73 O2 Sat by Pulse 99 98 Oximetry Medical Decision Making - Medical Decision Making Was pt. sent in by a medical professional or institution (JORDANA Rothman, LITIGATION ATTORNEY ASSOCIATE, urgent care, hospital, or penitentiary...) When possible be specific @ -No Did you speak to anyone other than the patient for history (EMS, parent, family, police, friend...)? What history was obtained from this source @ -No Did you review nursing and triage notes (agree or disagree)? Why? @ -I reviewed and agree with nursing and triage notes Were old charts reviewed (outside hosp., previous admission, EMS record, old EKG, old radiological studies, urgent care reports/EKG's, penitentiary records)? Report findings @ -No old charts were reviewed Differential Chest Pain: Stable Angina, Unstable Angina, STEMI, NSTEMI Aortic Dissection, Pneumothorax, Musculoskeletal, Esophageal Spasm GERD, Cholecystitis, Pancreatitis, Zoster, this is not meant to be an all-inclusive list. EKG interpreted by me (3pts min.). @ -Sinus rhythm low voltage rate of 93, IL interval 179, QRS duration 81, QTc [address] segment elevation. X-rays interpreted by me (1pt min.). @ -Chest x-ray negative for acute cardiopulmonary findings CT interpreted by me (1pt min.). @ -None done U/S interpreted by me (1pt. min.). @ -None done What testing was considered but not performed or refused? (CT, X-rays, U/S, labs)? Why? @ -None What meds were considered but not given or refused? Why? @ -None Did you discuss the management of the patient with other professionals (professionals i.e. JORDANA Rothman, LITIGATION ATTORNEY ASSOCIATE, lab, RT, psych nurse, social services coordinator, recapper, teacher, workers' compensation hearings officer, family independence case manager)? Give summary @ -No Was smoking cessation discussed for >3mins.? @ -No Was critical care preformed (if so, how long)? @ -No Were there social determinants of health that impacted care today? How? (Homel essness, low income, unemployed, alcoholism, drug addiction, transportation, low edu. Level, literacy, decrease access to med. care, shelter, rehab)? @ -No Was there de-escalation of care discussed even if they declined (Discuss DNR or withdrawal of care, Hospice)? DNR status @ -No What co-morbidities impacted this encounter? (DM, HTN, Smoking, COPD, CAD, Cancer, CVA, ARF, Chemo, Hep., AIDS, mental health diagnosis, sleep apnea, morbid obesity)? @ -costochondritis Was patient admitted / discharged? Hospital course, mention meds given and route, prescriptions, significant lab abnormalities, going to OR and other pertinent info. @ 38 yo female presenting for evaluation of chest pain nonradiating. Pain has been present for the past 24 hours. Patient has had cough cold symptoms as well. Pain is not positional. No associated dyspnea. Patient has normal CBC, normal CMP, negative D-dimer, negative troponin, negative viral swab. EKG is sinus rhythm without ST segment elevation. I did offer additional testing including serial cardiac enzymes, echocardiogram and cardiology consultation. 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 Patient is instructed to return if symptoms worsen and follow closely with her primary care provider and church administrator. Undiagnosed new problem with uncertain prognosis? @ -No Drug Therapy requiring intensive monitoring for toxicity (Heparin, Nitro, Insulin, Cardizem)? @ -No Were any procedures done? @ -No Diagnosis/symptom? @ chest pain Acute, or Chronic, or Acute on Chronic? @ -acute Uncomplicated (without systemic symptoms) or Complicated (systemic symptoms)? @ -Default Side effects of treatment? @ -No Exacerbation, Progression, or Severe Exacerbation? @ -No Poses a threat to life or bodily function? How? (Chest pain, USA, [place], pneumonia, PE, COPD, DKA, ARF, appy, cholecystitis, CVA, Diverticulitis, Homicidal, Suicidal, threat to staff... and all critical care pts) @ -[yes, moderate risk, cp - Lab Data Result diagrams: 11/23/23 12:53 11/23/23 12:53 Lab Results 11/23/23 11/23/23 11/23/23 Range/Units 12:53 12:53 12:53 WBC 6.6 (3.8-10.6) k/uL RBC 4.73 (3.80-5.40) m/uL Hgb 13.8 (11.4-16.0) gm/dL Hct 40.1 (34.0-46.0) % MCV 84.7 (80.0-100.0) fL MCH 29.1 (25.0-35.0) pg MCHC 34.4 (31.0-37.0) g/dL RDW 12.6 (11.5-15.5) % Plt Count 341 (150-450) k/uL MPV 7.1 Neutrophils % 59 % Lymphocytes % 27 % Monocytes % 7 % Eosinophils % 5 % Basophils % 1 % Neutrophils # 3.9 (1.3-7.7) k/uL Lymphocytes # 1.8 (1.0-4.8) k/uL Monocytes # 0.5 (0-1.0) k/uL Eosinophils # 0.3 (0-0.7) k/uL Basophils # 0.1 (0-0.2) k/uL PT 11.0 (10.0-12.5) sec INR 1.0 (<1.2) APTT 27.0 (22.0-30.0) sec D-Dimer 0.41 (<0.60) mg/L FEU Sodium 140 (137-145) mmol/L Potassium 3.9 (3.5-5.1) mmol/L Chloride 104 (98-107) mmol/L Carbon Dioxide 25 (22-30) mmol/L Anion Gap 11 mmol/L BUN 8 (7-17) mg/dL Creatinine 0.61 (0.52-1.04) mg/dL Est GFR (CKD-EPI)AfAm >90 (>60 ml/min/1.73 sqM) Est GFR (CKD-EPI)NonAf >90 (>60 ml/min/1.73 sqM) Glucose 105 H (74-99) mg/dL Calcium 9.6 (8.4-10.2) mg/dL Magnesium 2.0 (1.6-2.3) mg/dL Total Bilirubin 0.7 (0.2-1.3) mg/dL AST 28 (14-36) U/L ALT 19 (4-34) U/L Alkaline Phosphatase 47 (38-126) U/L Troponin I (0.000-0.034) ng/mL Total Protein 7.4 (6.3-8.2) g/dL Albumin 4.4 (3.5-5.0) g/dL Influenza Type A (PCR) (Not Detectd) Influenza Type B (PCR) (Not Detectd) RSV (PCR) (Not Detectd) SARS-CoV-2 (PCR) (Not Detectd) 11/23/23 11/23/23 Range/Units 12:53 12:53 WBC (3.8-10.6) k/uL RBC (3.80-5.40) m/uL Hgb (11.4-16.0) gm/dL Hct (34.0-46.0) % MCV (80.0-100.0) fL MCH (25.0-35.0) pg MCHC (31.0-37.0) g/dL RDW (11.5-15.5) % Plt Count (150-450) k/uL MPV Neutrophils % % Lymphocytes % % Monocytes % % Eosinophils % % Basophils % % Neutrophils # (1.3-7.7) k/uL Lymphocytes # (1.0-4.8) k/uL Monocytes # (0-1.0) k/uL Eosinophils # (0-0.7) k/uL Basophils # (0-0.2) k/uL PT (10.0-12.5) sec INR (<1.2) APTT (22.0-30.0) sec D-Dimer (<0.60) mg/L FEU Sodium (137-145) mmol/L Potassium (3.5-5.1) mmol/L Chloride (98-107) mmol/L Carbon Dioxide (22-30) mmol/L Anion Gap mmol/L BUN (7-17) mg/dL Creatinine (0.52-1.04) mg/dL Est GFR (CKD-EPI)AfAm (>60 ml/min/1.73 sqM) Est GFR (CKD-EPI)NonAf (>60 ml/min/1.73 sqM) Glucose (74-99) mg/dL Calcium (8.4-10.2) mg/dL Magnesium (1.6-2.3) mg/dL Total Bilirubin (0.2-1.3) mg/dL AST (14-36) U/L ALT (4-34) U/L Alkaline Phosphatase (38-126) U/L Troponin I <0.012 (0.000-0.034) ng/mL Total Protein (6.3-8.2) g/dL Albumin (3.5-5.0) g/dL Influenza Type A (PCR) Not Detected (Not Detectd) Influenza Type B (PCR) Not Detected (Not Detectd) RSV (PCR) Not Detected (Not Detectd) SARS-CoV-2 (PCR) Not Detected (Not Detectd) Disposition Clinical Impression: Chest pain Disposition: HOME SELF-CARE Condition: Fair Instructions (If sedation given, give patient instructions): Chest Pain (ED) Is patient prescribed a controlled substance at d/c from ED?: No Referrals: Cyril Villar MD [Primary Care Provider] - 1-2 days Time of Disposition: 14:09
[2023-11-23 13:01] LABS: Basophils # (A) 0.1 k/uL (0-0.2); Basophils % (A) 1 %; Eosinophils # (A) 0.3 k/uL (0-0.7); Eosinophils % (A) 5 %; HCT 40.1 % (34.0-46.0); HGB 13.8 gm/dL (11.4-16.0); Lymphocytes # (A) 1.8 k/uL (1.0-4.8); Lymphocytes % (A) 27 %; MCH 29.1 pg (25.0-35.0); MCHC 34.4 g/dL (31.0-37.0); MCV 84.7 fL (80.0-100.0); Mean Platelet Volume 7.1; Monocytes # (A) 0.5 k/uL (0-1.0); Monocytes % (A) 7 %; Neutrophils # (A) 3.9 k/uL (1.3-7.7); Neutrophils % (A) 59 %; Platelet Count 341 k/uL (150-450); RBC 4.73 m/uL (3.80-5.40); RDW 12.6 % (11.5-15.5); WBC 6.6 k/uL (3.8-10.6)
--- NOTE | 2023-11-23 13:02 | XR ---
EXAMINATION TYPE: XR chest 2V DATE OF EXAM: 11/23/2023 COMPARISON: 06/23/2023 HISTORY: Chest pain TECHNIQUE: Frontal and lateral views of the chest are obtained. FINDINGS: There is no focal air space opacity, pleural effusion, or pneumothorax seen. The cardiac silhouette size is within normal limits. The osseous structures are intact. IMPRESSION: No acute cardiopulmonary process.
[2023-11-23 13:14] LABS: ALT 19 U/L (4-34); AST 28 U/L (14-36); African American GFR (CKD) >90 (>60 ml/min/1.73 sqM); Albumin 4.4 g/dL (3.5-5.0); Alkaline Phosphatase 47 U/L (38-126); Anion Gap 11 mmol/L; Blood Urea Nitrogen 8 mg/dL (7-17); Calcium 9.6 mg/dL (8.4-10.2); Carbon Dioxide 25 mmol/L (22-30); Chloride 104 mmol/L (98-107); Glucose 105 mg/dL (74-99); Non-African American GFR(CKD) >90 (>60 ml/min/1.73 sqM); Potassium 3.9 mmol/L (3.5-5.1); Sodium 140 mmol/L (137-145); Total Bilirubin 0.7 mg/dL (0.2-1.3); Total Protein 7.4 g/dL (6.3-8.2)
[2023-11-23 14:08] VITALS: BP 107/73; PULSE 81; RESP 18
== END 2023-11-23 14:49 | disposition home or self-care (01) ==
LOC: EC 11:46
CPT/HCPCS: 36415; 71046; 80053; 83735; 84484; 85025; 85379; 85610; 85730; 87636; 93005; 99285

== ENCOUNTER 2024-03-12 16:41 | Observation (INO) | payer BC ==
--- NOTE | 2024-03-12 18:37 | XR ---
EXAMINATION TYPE: XR chest 2V DATE OF EXAM: 03/12/2024 6:11 PM COMPARISON: Chest radiographs from 11/23/2023 CLINICAL INDICATION: Female, 38 years old with history of chest pain; TECHNIQUE: XR chest 2V Frontal and lateral views of the chest. FINDINGS: Lungs/Pleura: There is no evidence of pleural effusion, focal consolidation, or pneumothorax. Pulmonary vascularity: Unremarkable. Heart/mediastinum: Cardiomediastinal silhouette is unremarkable. Musculoskeletal: No acute osseous pathology. IMPRESSION: No acute cardiopulmonary disease/process. [facility], , 03/12/2024 6:34 PM
[2024-03-12 19:40] LABS: Basophils # (A) 0.1 k/uL (0-0.2); Basophils % (A) 1 %; Eosinophils # (A) 0.2 k/uL (0-0.7); Eosinophils % (A) 2 %; HCT 39.3 % (34.0-46.0); HGB 13.5 gm/dL (11.4-16.0); Lymphocytes # (A) 2.3 k/uL (1.0-4.8); Lymphocytes % (A) 22 %; MCH 28.7 pg (25.0-35.0); MCHC 34.3 g/dL (31.0-37.0); MCV 83.8 fL (80.0-100.0); Mean Platelet Volume 6.8; Monocytes # (A) 0.7 k/uL (0-1.0); Monocytes % (A) 7 %; Neutrophils # (A) 6.9 k/uL (1.3-7.7); Neutrophils % (A) 66 %; Platelet Count 343 k/uL (150-450); RBC 4.69 m/uL (3.80-5.40); RDW 11.8 % (11.5-15.5); WBC 10.3 k/uL (3.8-10.6)
--- NOTE | 2024-03-12 19:53 | ED ---
Chest Pain HPI - General Chief Complaint: Chest Pain Stated Complaint: chest pain, POLO, Time Seen by Provider: 03/12/24 18:39 Source: patient Mode of arrival: ambulatory Limitations: no limitations - History of Present Illness Initial Comments: 38-year-old female presents to the emergency department reporting tachycardia, pleuritic chest pain and recent upper respiratory infection. States that she has been having symptoms of a cough, congestion for 2 weeks. She has been urgent care twice for the symptoms. She had viral swabs done twice and they were both were negative. Patient has not been taking any medications for her symptoms. Reports that she started having pleuritic chest pain and tachycardia. Her watch has been alerting her that her heart rate has been high. She denies history of DVTs or PEs. No calf pain or swelling. Has had recent travel for work on an airplane. As an aside the patient also reports to a recent mis carriage. States that she has been having vaginal bleeding. She is following with her OB who has been trending her beta quant. The last it was measured it was around 200. She does have an appointment coming up to have it rechecked. States that she has not saturating pads. She has had some heavy bright red blood but is able to change her pad every couple of hours. She denies any abdominal pain. No other alleviating, precipitating modifying factors - Related Data Home Medications Medication Instructions Recorded Confirmed Ascorbic Acid [Vitamin C] 1,000 mg PO DAILY 03/13/24 03/13/24 Aspirin EC [Ecotrin Low Dose] 81 mg PO DAILY 03/13/24 03/13/24 Cholecalciferol (Vitamin D3) 50 mcg PO DAILY 03/13/24 03/13/24 [Vitamin D3 (50 Mcg = 2000 Iu)] Allergies Allergy/AdvReac Type Severity Reaction Status Date / Time Iodinated Contrast Media Allergy Rash/Hives Verified 03/13/24 09:25 Review of Systems ROS Statement: Those systems with pertinent positive or pertinent negative responses have been documented in the HPI. ROS Other: All systems not noted in ROS Statement are negative. Past Medical History Past Medical History: Musculoskeletal Disorder Additional Past Medical History / Comment(s): back pain History of Any Multi-Drug Resistant Organisms: None Reported Past Surgical History: Section Additional Past Surgical History / Comment(s): hole in heart repaired 2010 [facility] Past Psychological History: No Psychological Hx Reported Smoking Status: Vaper Past Alcohol Use History: Occasional Past Drug Use History: None Reported General Exam Limitations: no limitations General appearance: alert, in no apparent distress Head exam: Present: atraumatic, normocephalic, normal inspection Eye exam: Present: normal appearance, PERRL, EOMI. Absent: scleral icterus, conjunctival injection, periorbital swelling ENT exam: Present: normal exam, mucous membranes moist Neck exam: Present: normal inspection. Absent: tenderness, meningismus, lymphadenopathy Respiratory exam: Present: normal lung sounds bilaterally. Absent: respiratory distress, wheezes, rales, rhonchi, stridor Cardiovascular Exam: Present: regular rate, tachycardia, normal heart sounds. Absent: systolic murmur, diastolic murmur, rubs, gallop, clicks GI/Abdominal exam: Present: soft, normal bowel sounds. Absent: distended, tenderness, guarding, rebound, rigid Extremities exam: Present: normal inspection, full ROM, normal capillary refill. Absent: tenderness, pedal edema, joint swelling, calf tenderness Back exam: Present: normal inspection Neurological exam: Present: alert, oriented X3, CN II-XII intact Psychiatric exam: Present: normal affect, normal mood Skin exam: Present: warm, dry, intact, normal color. 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 sent in by a medical professional or institution (, PA, [facility], urgent care, hospital, or skilled nursing...) When possible be specific @ -No Did you speak to anyone other than the patient for history (EMS, parent, family, police, friend...)? What history was obtained from this source @ -No Did you review nursing and triage notes (agree or disagree)? Why? @ -I reviewed and agree with nursing and triage notes Were old charts reviewed (outside hosp., previous admission, EMS record, old EKG, old radiological studies, urgent care reports/EKG's, skilled nursing records)? Report findings @ -No old charts were reviewed Differential Diagnosis (chest pain, altered mental status, abdominal pain women, abdominal pain men, vaginal bleeding, weakness, fever, dyspnea, syncope, headache, dizziness, GI bleed, back pain, seizure, CVA, palpatations, mental health, musculoskeletal)? @ -Differential Palpitations Ventricular arrhythmias, atrial arrhythmias, myocardial infarction, anemia, thyrotoxicosis, electrolyte imbalance, hypokalemia, pulmonary embolism, pulmonary disease, drugs, alcohol, anxiety, stress.... This is not meant to be an all-inclusive list. EKG interpreted by me (3pts min.). @ -yes and demonstrates sinus tachycardia with a rate of 110. Parable 177. QRS 81. QTc of 385. No acute ST segment elevations or depressions X-rays interpreted by me (1pt min.). @ -yes and demonstrates no acute process CT interpreted by me (1pt min.). @ -None done U/S interpreted by me (1pt. min.). @ -None done What testing was considered but not performed or refused? (CT, X-rays, U/S, labs)? Why? @ -Ct angiography - patient refused contrast even with pretreatment What meds were considered but not given or refused? Why? @ -None Did you discuss the management of the patient with other professionals (professionals i.e. , PA, [facility], lab, RT, psych nurse, social worker delinquency prevention, infection control coordinator, teacher, access control officer, case repairer)? Give summary @ -spoke with bryanna for admission Was smoking cessation discussed for >3mins.? @ -No Was critical care preformed (if so, how long)? @ -No Were there social determinants of health that impacted care today? How? (Homelessness, low income, unemployed, alcoholism, drug addiction, transportation, low edu. Level, literacy, decrease access to med. care, retirement, rehab)? @ -No Was there de-escalation of care discussed even if they declined (Discuss DNR or withdrawal of care, Hospice)? DNR status @ -No What co-morbidities impacted this encounter? (DM, HTN, Smoking, COPD, CAD, Cancer, CVA, ARF, Chemo, Hep., AIDS, mental health diagnosis, sleep apnea, morbid obesity)? @ -None Was patient admitted / discharged? Hospital course, mention meds given and route, prescriptions, significant lab abnormalities, going to OR and other pertinent info. @ -Upon arrival, patient seen and evaluated in hallway 11. History and physical performed. 12 lead EKG performed. labs conducted. patient has elevated d-dimer. She is refusing CT angiography as she is allergic to the contrast. Informed patient she would need to be admitted for vq scan for which she was agreeable to. Spoke with Bryanna from [facility] for admission Undiagnosed new problem with uncertain prognosis? @ -No Drug Therapy requiring intensive monitoring for toxicity (Heparin, Nitro, Insulin, Cardizem)? @ -No Were any procedures done? @ -No Diagnosis/symptom? @ -acute pleuritic chest pain, elevated d-dimer, tachycardia, suspected miscarriageNoNoNoNoNoNoNoneNoNoNoNoNoneNone doneNone doneNo old charts were reviewedI reviewed and agree with nursing and triage notesNoNo Acute, or Chronic, or Acute on Chronic? @ -acute Uncomplicated (without systemic symptoms) or Complicated (systemic symptoms)? @ -complicated Side effects of treatment? @ -No Exacerbation, Progression, or Severe Exacerbation? @ -No Poses a threat to life or bodily function? How? (Chest pain, [place], [place], pneumonia, PE, COPD, DKA, ARF, appy, cholecystitis, CVA, Diverticulitis, Homicidal, [place] tequila, threat to staff... and allNo critical care pts) @ -No Disposition Clinical Impression: Chest pain, Tachycardia, Cough, Elevated d-dimer Disposition: ADMITTED IP TO THIS [facility] Condition: Stable Is patient prescribed a controlled substance at d/c from ED?: No Time of Disposition: 22:12 Decision to Admit Reason: Admit from EC Decision Date: 03/12/24 Decision Time: 22:12
[2024-03-12 20:00] LABS: ALT 19 U/L (4-34); AST 21 U/L (14-36); African American GFR (CKD) >90 (>60 ml/min/1.73 sqM); Albumin 4.5 g/dL (3.5-5.0); Alkaline Phosphatase 54 U/L (38-126); Anion Gap 8 mmol/L; Blood Urea Nitrogen 8 mg/dL (7-17); Calcium 9.7 mg/dL (8.4-10.2); Carbon Dioxide 28 mmol/L (22-30); Chloride 102 mmol/L (98-107); Glucose 88 mg/dL (74-99); Non-African American GFR(CKD) >90 (>60 ml/min/1.73 sqM); Potassium 4.1 mmol/L (3.5-5.1); Sodium 138 mmol/L (137-145); Total Bilirubin 0.5 mg/dL (0.2-1.3); Total Protein 7.6 g/dL (6.3-8.2)
[2024-03-12 20:30] LABS: HCG,Quantitative Serum 122.5 mIU/mL
[2024-03-12 21:04] LABS: Partial Thromboplastin Time 27.5 sec (22.0-30.0); Prothrombin Time 10.9 sec (10.0-12.5)
[2024-03-12 21:30] LABS: Color,Urine Colorless
[2024-03-12 21:31] LABS: Appearance,Urine Clear (Clear); Bacteria,Urine Rare /hpf; RBC,Urine <1 /hpf (0-5); Specific Gravity,Urine 1.017 (1.001-1.035); Squamous Epithelial Cell,Urine 1 /hpf (0-4); WBC,Urine 1 /hpf (0-5)
[2024-03-12 21:32] LABS: Glucose,Urine (UA) Negative (Negative); Protein,Urine Negative (Negative)
[2024-03-12 21:33] LABS: Ketones,Urine Negative (Negative)
[2024-03-12 21:34] LABS: Bilirubin,Urine Negative (Negative); Blood,Urine Negative (Negative); Leukocyte Esterase,Urine Negative (Negative); Nitrite,Urine Negative (Negative); Urobilinogen,Urine <2.0 mg/dL (<2.0)
[2024-03-12] MEDS ORDERED: NALOXONE 0.4 MG/ML 1 ML VIAL IV PRN (22:12)
[2024-03-12] MEDS: ENOXAPARIN 60 MG/0.6 ML SYRINGE SQ STA (22:56)
[2024-03-13] MEDS: ACETAMINOPHEN TAB 325 MG TAB PO PRN (01:33)
[2024-03-13] MEDS: SODIUM CHLORIDE 0.9% 1,000 ML IV SCH (01:33)
[2024-03-13 05:47] LABS: Basophils # (A) 0.1 k/uL (0-0.2); Basophils % (A) 1 %; Eosinophils # (A) 0.2 k/uL (0-0.7); Eosinophils % (A) 3 %; HCT 34.5 % (34.0-46.0); HGB 11.3 gm/dL (11.4-16.0); Lymphocytes # (A) 2.3 k/uL (1.0-4.8); Lymphocytes % (A) 27 %; MCH 28.3 pg (25.0-35.0); MCHC 32.8 g/dL (31.0-37.0); MCV 86.2 fL (80.0-100.0); Mean Platelet Volume 6.7; Monocytes # (A) 0.6 k/uL (0-1.0); Monocytes % (A) 7 %; Neutrophils # (A) 5.3 k/uL (1.3-7.7); Neutrophils % (A) 61 %; Platelet Count 308 k/uL (150-450); RDW 11.9 % (11.5-15.5); WBC 8.7 k/uL (3.8-10.6)
[2024-03-13 05:59] LABS: African American GFR (CKD) >90 (>60 ml/min/1.73 sqM); Anion Gap 7 mmol/L; Blood Urea Nitrogen 8 mg/dL (7-17); Calcium 8.7 mg/dL (8.4-10.2); Carbon Dioxide 24 mmol/L (22-30); Chloride 105 mmol/L (98-107); Glucose 96 mg/dL (74-99); Non-African American GFR(CKD) >90 (>60 ml/min/1.73 sqM); Potassium 3.6 mmol/L (3.5-5.1); Sodium 136 mmol/L (137-145)
--- NOTE | 2024-03-13 08:51 | NM ---
EXAMINATION TYPE: NM pul perfusion DATE OF EXAM: 03/13/2024 COMPARISON: Chest x-ray 03/12/2024 CLINICAL INDICATION: Female, 38 years old with history of elevated d-dimer, tachycardia, short of aliza ath; Following administration of 5.2 mCi Tc 99m MAA. Images obtained post injection. FINDINGS: Only perfusion images are submitted. Question a small perfusion defect in the right middle lobe.. Pro bability for pulmonary embolism cannot be performed given the lack of ventilation images. IMPRESSION: Questionable small perfusion defect right middle lobe recommend CTA pulmonary angiogram to assess for pulmonary embolism. [facility], , 03/13/2024 8:48 AM
--- NOTE | 2024-03-13 10:25 | P.HPIM ---
History of Present Illness H&P Date: 03/13/24 History of present illness; patient is a 38-year-old lady with past medical history significant for hyperlipidemia who presented to the ER because of chest pain and palpitation. Patient stated she has been dealing with cough and upper respiratory infection for the last 2 weeks. Patient stated that she was having cough and congestion for which she went to the urgent care twice and was checked for viral infections and they were negative. Patient stated that she started noticing that she was having chest pain that was present on sides, sharp, aggravated by taking deep breaths, no radiation of this chest pain. Patient was also complaining of palpitation at the time, denies any swelling of feet. There is no clear orthopnea or PND. There is open no fever or chills. Patient does admit to recent travels. Patient also underwent recent miscarriage and has been having genital bleeding. Patient was being followed up outpatient by [facility] with last beta-hCG somewhere in 200. Because of this chest pain and palpitation, patient presented the ER Initial lab work done in the ER showed WBC 10.3, hemoglobin 13.5, platelet count 343, D-dimer 0.64, sodium 130, potassium 4.1, BUN 8, creatinine 0.57, CRP 15, total protein 7.6, Positive repeat hCG UA negative for any infection VQ scan done showed questionable small perfusion defect right middle lobe. EKG done in the ER showed heart rate of 110, no ST segment elevation or depression seen, no T-wave inversions seen. Chest x-ray done in the ER showed no acute cardiopulmonary process Patient admitted to internal medicine service REVIEW OF SYSTEMS: CONSTITUTIONAL: No fever, no malaise, no fatigue. HEENT: No recent visual problems or hearing problems. Denied any sore throat. CARDIOVASCULAR: No chest pain, orthopnea, PND, no palpitations, no syncope. PULMONARY: No shortness of breath, no cough, no hemoptysis. GASTROINTESTINAL: No diarrhea, no nausea, no vomiting, no abdominal pain. NEUROLOGICAL: No headaches, no weakness, no numbness. HEMATOLOGICAL: Denies any bleeding or petechiae. GENITOURINARY: Denies any burning micturition, frequency, or urgency. MUSCULOSKELETAL/RHEUMATOLOGICAL: Denies any joint pain, swelling, or any muscle pain. ENDOCRINE: Denies any polyuria or polydipsia. The rest of the 14-point review of systems is negative. PHYSICAL EXAMINATION: GENERAL: The patient is alert and oriented x3, not in any acute distress. Well developed, well nourished. HEENT: Pupils are round and equally reacting to light. EOMI. No scleral icterus. No conjunctival pallor. Normocephalic, atraumatic. No pharyngeal erythema. No thyromegaly. CARDIOVASCULAR: S1 and S2 present. No murmurs, rubs, or gallops. PULMONARY: Chest is clear to auscultation, no wheezing or crackles. ABDOMEN: Soft, nontender, nondistended, normoactive bowel sounds. No palpable organomegaly. MUSCULOSKELETAL: No joint swelling or deformity. EXTREMITIES: No cyanosis, clubbing, or pedal edema. NEUROLOGICAL: Gross neurological examination did not reveal any focal deficits. SKIN: No rashes. Assessment and plan Chest pain Palpitations History of recent miscarriage Hyperlipidemia Monitor vital signs Monitor CBC Monitor CMP Continue telemetry monitoring Trend troponin Ordered 2D echo Ordered ultrasound lower extremities VQ scan was questionable for a perfusion defect, Consult pulmonary Consult cardiology Discussed with patient regarding getting CTA chest with contrast rule out PE if ultrasound of lower extremities are negative for DVT. Patient this time is not very comfortable and getting CTA chest and will think about it as she has history of iodine allergy. Explained to her that we can prep her with medications for that but she is hesitant. Labs and medication were reviewed.. Continue same treatment. Continue with symptomatic treatment. Resume home medication. Monitor labs and vitals. DVT and GI prophylaxis. Further recommendations as per clinical course of the patient Dictation was produced using [employer] dictation software. please excuse any grammatical, word or spelling errors. Past Medical History Past Medical History: Musculoskeletal Disorder Additional Past Medical History / Comment(s): back pain History of Any Multi-Drug Resistant Organisms: None Reported Past Surgical History: Section Additional Past Surgical History / Comment(s): hole in heart repaired 2010 [facility] Past Psychological History: No Psychological Hx Reported Smoking Status: Vaper Past Alcohol Use History: Occasional Past Drug Use History: None Reported Medications and Allergies Home Medications Medication Instructions Recorded Confirmed Type Ascorbic Acid [Vitamin C] 1,000 mg PO DAILY 03/13/24 03/13/24 History Aspirin EC [Ecotrin Low Dose] 81 mg PO DAILY 03/13/24 03/13/24 History Cholecalciferol (Vitamin D3) 50 mcg PO DAILY 03/13/24 03/13/24 History [Vitamin D3 (50 Mcg = 2000 Iu)] Allergies Allergy/AdvReac Type Severity Reaction Status Date / Time Iodinated Contrast Media Allergy Rash/Hives Verified 03/13/24 09:25 Physical Exam Vitals: Vital Signs Temp Pulse Resp BP Pulse Ox 03/13/24 07:06 78 20 94/60 98 03/13/24 01:30 102 H 18 111/74 03/12/24 21:50 98.7 F 111 H 17 107/74 100 03/12/24 17:07 98.5 F 114 H 20 109/72 99 Intake and Output 03/12/24 03/13/24 03/13/24 22:59 06:59 14:59 Other: Weight 54.431 kg Results CBC & Chem 7: 03/13/24 05:33 03/13/24 05:33 Labs: Abnormal Lab Results - Last 24 Hours (Table) 03/12/24 03/12/24 03/12/24 Range/Units 19:31 19:53 19:53 Hgb (11.4-16.0) gm/dL D-Dimer 0.64 H (<0.60) mg/L FEU Sodium (137-145) mmol/L C-Reactive Protein 15.0 H (<1.0) mg/dL Urine Bacteria Rare H (None) /hpf 03/13/24 03/13/24 Range/Units 05:33 05:33 Hgb 11.3 L (11.4-16.0) gm/dL D-Dimer (<0.60) mg/L FEU Sodium 136 L (137-145) mmol/L C-Reactive Protein (<1.0) mg/dL Urine Bacteria (None) /hpf
[2024-03-13] MEDS: predniSONE 20 MG TAB PO SCH (10:57)
[2024-03-13] MEDS: ASPIRIN 81 MG PO SCH (11:11)
--- NOTE | 2024-03-13 11:22 | US ---
EXAMINATION TYPE: US venous doppler duplex LE BI DATE OF EXAM: 03/13/2024 9:39 AM COMPARISON: US(06/23/2023) CLINICAL INDICATION: Female, 38 years old with history of swelling, elevated d-dimer; , Pain TECHNIQUE: The lower extremity deep venous system is examined utilizing real time linear array sonog rita with graded compression, color doppler sonography, and spectral doppler. SIDE PERFORMED: Bilateral FINDINGS: VESSELS IMAGED: Common Femoral Vein Deep Femoral Vein Greater Saphenous Vein * Femoral Vein Popliteal Vein Small Saphenous Vein * Proximal Calf Veins (* superficial vessels) Right Leg: Negative for DVT, Color Doppler imaging shows patency of the vessels. Spectral waveforms are within normal limits. Left Leg: Negative for DVT, Color Doppler imaging shows patency of the vessels. Spectral waveforms a re within normal limits. IMPRESSION: No ultrasound evidence for deep venous thrombosis. [facility], , 03/13/2024 11:20 AM
--- NOTE | 2024-03-13 12:20 | P.CNPUL ---
History of Present Illness Consult date: 03/13/24 Requesting physician: Paul Kyle Reason for consult: chest pain Chief complaint: Chest pain, tachycardia History of present illness: This is a 38-year-old female patient with a known history of hyperlipidemia, vaping, currently experiencing suspected loss of . Recent hCG level was 200. Today it is 122. She presented to the emergency room mainly for complaints of a 2-week history of shortness of breath cough and congestion. She was seen in urgent care twice without improvement of symptoms. She is now reporting some pleuritic type chest pain and tachycardia that her watch alerted her to. Chest x-ray reveals no acute process. White count 8.7. Hemoglobin 11.3. Platelets 308. Sodium 136. Potassium 3.6. Bicarb 24. BUN 8. Creatinine 0.53. Troponins were negative x 3. D-dimer 0.64. hCG 122.5. Urinalysis clean. Perfusion scan revealed questionable small defect in the right middle lobe recommending CT angiogram. The patient has a dye allergy and is reluctant to have this done. Dopplers of the lower extremities revealed no evidence of DVT. She is seen today in consultation in the emergency department. Currently sitting up in a stretcher. Awake and alert in no acute distress. She is maintaining O2 saturations up to 100% on room air. She is afebrile. Hem odynamically stable. Current heart rate 91. She has normal saline at 50 mL/h. Review of Systems REVIEW OF SYSTEMS: CONSTITUTIONAL: Denies any recent significant weight loss or weight gain. EYES: Denies change in vision. EARS, NOSE, MOUTH, THROAT: Denies headaches, denies sore throat. CARDIOVASCULAR: Positive for chest pain, palpitations no syncopal episodes. RESPIRATORY: Positive for shortness of breath, cough, congestion no hemoptysis. GASTROINTESTINAL: Denies change in appetite, denies abdominal pain GENITOURINARY: Denies hematuria, denies infections. MUSKULOSKELETAL: Denies pain, denies swelling. INTEGUMENTARY: Denies rash, denies eczema. NEUROLOGICAL: Denies recent memory loss, no recent seizure activity. PSYCHIATRIC: Denies anxiety, denies depression. HEMATOLOGIC/LYMPHATIC: Denies anemia, denies enlarged lymph nodes. Past Medical History Past Medical History: Musculoskeletal Disorder Additional Past Medical History / Comment(s): back pain History of Any Multi-Drug Resistant Organisms: None Reported Past Surgical History: Section Additional Past Surgical History / Comment(s): hole in heart repaired 2010 [facility] Past Psychological History: No Psychological Hx Reported Smoking Status: Vaper Past Alcohol Use History: Occasional Past Drug Use History: None Reported Medications and Allergies Home Medications Medication Instructions Recorded Confirmed Type Ascorbic Acid [Vitamin C] 1,000 mg PO DAILY 03/13/24 03/13/24 History Aspirin EC [Ecotrin Low Dose] 81 mg PO DAILY 03/13/24 03/13/24 History Cholecalciferol (Vitamin D3) 50 mcg PO DAILY 03/13/24 03/13/24 History [Vitamin D3 (50 Mcg = 2000 Iu)] Allergies Allergy/AdvReac Type Severity Reaction Status Date / Time Iodinated Contrast Media Allergy Rash/Hives Verified 03/13/24 09:25 Physical Exam Vitals: Vital Signs Temp Pulse Resp BP Pulse Ox 03/13/24 11:09 98.1 F 91 20 114/69 100 03/13/24 07:06 78 20 94/60 98 03/13/24 01:30 102 H 18 111/74 03/12/24 21:50 98.7 F 111 H 17 107/74 100 03/12/24 17:07 98.5 F 114 H 20 109/72 99 Intake and Output 03/12/24 03/13/24 03/13/24 22:59 06:59 14:59 Other: Weight 54.431 kg GENERAL EXAM: Alert, pleasant 38-year-old female, on room air, comfortable in no apparent distress. HEAD: Normocephalic. EYES: Normal reaction of pupils, equal size. NOSE: Clear with pink turbinates. THROAT: No erythema or exudates. NECK: No masses, no JVD. CHEST: No chest wall deformity. LUNGS: Equal air entry with no crackles, wheeze, rhonchi or dullness. CVS: S1 and S2 normal with no audible murmur, regular rhythm. ABDOMEN: No hepatosplenomegaly, normal bowel sounds, no guarding or rigidity. SPINE: No scoliosis or deformity SKIN: No rashes CENTRAL NERVOUS SYSTEM: No focal deficits, tone is normal in all 4 extremities. EXTREMITIES: There is no peripheral edema. No clubbing, no cyanosis. Peripheral pulses are intact. Results - Laboratory Findings CBC and BMP: 03/13/24 05:33 12/27/24 05:33 PT/INR, D-dimer PT 10.9 sec (10.0-12.5) 03/12/24 19:31 INR 1.0 (<1.2) 03/12/24 19:31 D-Dimer 0.64 mg/L FEU (<0.60) H 03/12/24 19:31 Abnormal lab findings: Abnormal Labs 03/12/24 03/12/24 03/12/24 19:31 19:53 19:53 Hgb D-Dimer 0.64 H Sodium C-Reactive Protein 15.0 H Urine Bacteria Rare H 03/13/24 03/13/24 05:33 05:33 Hgb 11.3 L D-Dimer Sodium 136 L C-Reactive Protein Urine Bacteria - Diagnostic Findings Chest x-ray: image reviewed U/S of Legs: image reviewed Assessment and Plan Assessment: Atypical right-sided chest pain with pain on inhalation, suspect pleurisy. Perfusion scan revealed questionable small defect in the right middle lobe. Doppler of the lower extremities ruled out DVT Vaginal bleeding, suspect miscarriage in progress. Recent hCG 200, current hCG 122.5 being followed in the outpatient setting History of vaping History of PFO s/p repair in 2010 Plan: The patient was seen and evaluated Imaging, labs and medications reviewed Currently stable and on room air Doppler of the lower extremities negative Perfusion scan questionable Recommending CT angiogram to rule out or rule in pulmonary embolism Patient declines due to previous hives from contrast despite being educated regarding pre and post treatment I have personally seen and examined the patient, performed the documentation and the assessment and plan as written. Number of minutes spent on the visit: 20 Dictation was produced using [employer] dictation software. Please excuse any grammatical, word or spelling errors.
--- NOTE | 2024-03-13 19:25 | CONS ---
CONSULTATION HISTORY OF PRESENT ILLNESS: Dennis is a 38-year-old lady, who presented to hospital with symptoms of chest pain and palpitations. The patient has had upper respiratory tract infection for the last 2 weeks and then subsequently had chest discomfort that is sharp and pleuritic in nature. EKG showed sinus rhythm with sinus tachycardia. She is and thinks that she is having loss of her . I have been consulted because of this chest discomfort. She had mildly elevated D-dimer, had a V/Q scan that was inconclusive and Pulmonary had been consulted for further evaluation of these to address the issue of whether she is to undergo a CT angiogram or not for definitive diagnosis. Her chest x-ray is unremarkable. PAST MEDICAL HISTORY: Negative for diabetes, hypertension, dyslipidemia. MEDICATIONS: Include, 1. Aspirin. 2. Vitamin C. 3. Vitamin D. ALLERGIES: To IV dye. FAMILY HISTORY: Negative for premature coronary artery disease. SOCIAL HISTORY: Negative for current smoking, EtOH, or drug abuse. REVIEW OF SYSTEMS: HEENT: Unremarkable. CARDIAC: As described above. RESPIRATORY: Negative. GI: Negative. GENITOURINARY: Negative. MUSCULOSKELETAL: Negative. Rest of the system review is not relevant. PHYSICAL EXAMINATION: GENERAL: Comfortable at rest. VITAL SIGNS: Heart rate is 90 beats per minute, blood pressure is 114/69, respiratory rate is 18, O2 saturation is 100% on room air. NECK: There is no jugular venous distention. Carotid upstroke is normal. There is no bruit. CHEST: Reveals good air entry bilaterally. HEART: Reveals first and second heart sounds. No gallop. No murmur. No rub. ABDOMEN: Soft, nontender. EXTREMITIES: Did not reveal any edema. Peripheral pulses are felt. LABORATORY DATA: Labs show a hemoglobin of 11.3, platelet count is 308, potassium is 3.6, creatinine is 0.5. Troponin is negative. ASSESSMENT AND PLAN: 1. Pleuritic chest pain, probably related to the recent viral illness. 2. Elevated D-dimer. Further workup as per Pulmonary. 3. Sinus tachycardia. I do not believe this is related to pulmonary embolism. I will obtain a 2D echo to evaluate her LV function and to rule out any pericardial disease. MMODL / IJN: [id number] /
[2024-03-14 07:45] VITALS: RESP 16; TEMP 98.3
[2024-03-14] MEDS: CHOLECALCIFEROL 25 MCG (1000 IU) TABLET PO SCH (09:36)
[2024-03-14] MEDS: ASCORBIC ACID 500 MG TAB PO SCH (09:36)
--- NOTE | 2024-03-14 11:26 | CA ---
Transthoracic Echo Report Name: Dennis Ndiaye Age: 38 Gender: F : 1985 Exam Date: 03/14/2024 08:45 Exam Location: [facility] Ht (in): 62 Wt (lb): 120 Ordering Physician: Paul Kyle MD Attending/Referring Phys: [employer]ian Caroline Dias RDCS Procedure CPT: Indications: SHORTNESS OF BREATH Cardiac Hx: Technical Quality: Good Contrast 1: Total Dose (mL): Contrast 2: Total Dose (mL): MEASUREMENTS (Male / Female) Normal Values 2D ECHO LV Diastolic Diameter PLAX 3.9 cm 4.2 - 5.9 / 3.9 - 5.3 cm LV Systolic Diameter PLAX 3.1 cm IVS Diastolic Thickness 0.6 cm 0.6 - 1.0 / 0.6 - 0.9 cm LVPW Diastolic Thickness 0.8 cm 0.6 - 1.0 / 0.6 - 0.9 cm LV Relative Wall Thickness 0.3 LVOT Diameter 1.9 cm LV Diastolic Volume MOD BP 68.1 cm??? 67 - 155 / 56 - 104 cm??? LV Systolic Volume MOD BP 25.5 cm??? 22 - 58 / 19 - 49 cm??? LV Ejection Fraction MOD BP 62.6 % >= 55 % LV Cardiac Index MOD BP 2232.0 cm???/min???m??? LV Diastolic Volume MOD 4C 65.5 cm??? LV Systolic Volume MOD 4C 23.7 cm??? LV Ejection Fraction MOD 4C 63.8 % LV Cardiac Index MOD 4C 2189.6 cm???/min???m??? LV Diastolic Length 4C 8.1 cm LV Systolic Length 4C 6.6 cm LV Diastolic Volume MOD 2C 67.0 cm??? LV Systolic Volume MOD 2C 25.9 cm??? LV Ejection Fraction MOD 2C 61.3 % LV Cardiac Index MOD 2C 2152.6 cm???/min???m??? LV Diastolic Length 2C 7.7 cm LV Systolic Length 2C 6.2 cm LA Volume 29.2 cm??? 18 - 58 / 22 - 52 cm??? LA Volume Index 18.8 cm???/m??? 16 - 28 cm???/m??? Ascending Aorta Diameter 2.9 cm DOPPLER AV Peak Velocity 113.4 cm/s AV Peak Gradient 5.1 mmHg AV Mean Velocity 77.4 cm/s AV Mean Gradient 2.7 mmHg AV Velocity Time Integral 22.7 cm LVOT Peak Velocity 97.3 cm/s LVOT Peak Gradient 3.8 mmHg LVOT Velocity Time Integral 16.8 cm LVOT Stroke Volume 48.3 cm??? LVOT Stroke Volume Index 31.4 ml/m??? LVOT Cardiac Index 2530.9 cm???/min???m??? AV Area Cont Eq vti 2.1 cm??? AV Area Cont Eq pk 2.5 cm??? MV Area PHT 5.1 cm??? Mitral E Point Velocity 60.2 cm/s Mitral A Point Velocity 51.5 cm/s Mitral E to A Ratio 1.2 MV Deceleration Time 150.1 ms PV Peak Velocity 93.0 cm/s PV Peak Gradient 3.5 mmHg FINDINGS Left Ventricle Left ventricular ejection fraction is estimated at 60 %. Left ventricular cavity size normal. Left ventricular wall thickness normal. No obvious regional wall motion abnormalities. Right Ventricle Normal right ventricular size and function. Unable to estimate the right ventricular systolic pressure. Right Atrium Normal right atrial size. Left Atrium Normal left atrial size. Mitral Valve Structurally normal mitral valve. No evidence for mitral valve prolapse. No mitral stenosis. Trace mitral regurgitation. Aortic Valve Trileaflet aortic valve. No aortic valve stenosis or regurgitation. Tricuspid Valve Structurally normal tricuspid valve. No tricuspid stenosis. Trace tricuspid regurgitation. Pulmonic Valve Structurally normal pulmonic valve. No pulmonic stenosis. No pulmonic regurgitation. Pericardium No pericardial effusion. Aorta Normal size aortic root and proximal ascending aorta. CONCLUSIONS Normal LV function Previewed by: Dr. Elpidio Barber MD (Electronically Signed) Final Date: 14 March 2024 11:25
--- NOTE | 2024-03-14 13:22 | P.PN ---
Subjective Progress Note Date: 03/14/24 This is a 38-year-old female patient with a known history of hyperlipidemia, vaping, currently experiencing suspected loss of . Recent hCG level was 200. Today it is 122. She presented to the emergency room mainly for complaints of a 2-week history of shortness of breath cough and congestion. She was seen in urgent care twice without improvement of symptoms. She is now reporting some pleuritic type chest pain and tachycardia that her watch alerted her to. Chest x-ray reveals no acute process. White count 8.7. Hemoglobin 11.3. Platelets 308. Sodium 136. Potassium 3.6. Bicarb 24. BUN 8. Creatinine 0.53. Troponins were negative x 3. D-dimer 0.64. hCG 122.5. Urinalysis clean. Perfusion scan revealed questionable small defect in the right middle lobe recommending CT angiogram. The patient has a dye allergy and is reluctant to have this done. Dopplers of the lower extremities revealed no evidence of DVT. She is seen today in consultation in the emergency department. Currently sitting up in a stretcher. Awake and alert in no acute distress. She is maintaining O2 saturations up to 100% on room air. She is afebrile. Hemodynamically stable. Current heart rate 91. She has normal saline at 50 mL/h. The patient is seen today March 14, 2024 in follow-up on the regular medical floor. She is currently awake and alert in no acute distress. Sitting up at the bedside. Maintaining good O2 saturations in the 90s on room air. No further chest pain. No shortness of breath. She does have a dry cough. Some sinus congestion. She had declined to have a CT angiogram to rule out pulmonary embolism. Echocardiogram revealed normal left ventricular systolic function. Normal right ventricle size and function. No evidence of right heart strain. Troponins were negative x 3. Objective - Vital Signs Vital signs: Vital Signs Temp 98.3 F 03/14/24 07:00 Pulse 85 03/14/24 07:00 Resp 16 03/14/24 07:00 BP 99/61 03/14/24 07:00 Pulse Ox 98 03/14/24 07:00 FiO2 Intake & Output 03/13/24 03/14/24 03/14/24 18:59 06:59 18:59 Intake Total 500 Balance 500 Weight 54.431 kg Intake: Oral 500 Other: # Voids 2 4 - Exam GENERAL EXAM: Alert, active, 38-year-old female, on room air, comfortable in no apparent distress. HEAD: Normocephalic. EYES: Normal reaction of pupils, equal size. NOSE: Clear with pink turbinates. THROAT: No erythema or exudates. NECK: No masses, no JVD. CHEST: No chest wall deformity. LUNGS: Equal air entry with no crackles, wheeze, rhonchi or dullness. CVS: S1 and S2 normal with no audible murmur, regular rhythm. ABDOMEN: No hepatosplenomegaly, normal bowel sounds, no guarding or rigidity. SPINE: No scoliosis or deformity SKIN: No rashes CENTRAL NERVOUS SYSTEM: No focal deficits, tone is normal in all 4 extremities. EXTREMITIES: There is no peripheral edema. No clubbing, no cyanosis. Peripheral pulses are intact. - Labs CBC & Chem 7: 03/13/24 05:33 03/13/24 05:33 Assessment and Plan Assessment: Atypical right-sided chest pain with pain on inhalation, suspect pleurisy. Perfusion scan revealed questionable small defect in the right middle lobe. Doppler of the lower extremities ruled out DVT Vaginal bleeding, suspect miscarriage in progress. Recent hCG 200, current hCG 122.5 being followed in the outpatient setting History of vaping History of PFO s/p repair in 2010 Plan: The patient was seen and evaluated Echocardiogram, labs and medications reviewed Normal LV and RV function Currently stable and on room air Declined CT angiogram Cleared for discharge Will follow-up with Dr. Alejo in our office in 1 week This patient was seen independently by the pulmonary nurse practitioner addressing pulmonary issues I have personally seen and examined the patient, performed the documentation and the assessment and plan as written. Number of minutes spent on the visit: 24 Dictation was produced using [employer] software. Please excuse any grammatical, word or spelling errors.
--- NOTE | 2024-03-14 14:21 | P.DS ---
Providers Date of admission: 03/12/24 22:16 Expected date of discharge: 03/14/24 Attending physician: Antonio Rizvi MD Consults: 03/12/24 22:12 Consult Physician Urgent Consulting Provider: [facility] Consult Reason/Comments: pleuritic chest pain, tachycardia Do you want consulting provider notified?: Yes 03/13/24 09:33 Consult Physician Routine Consulting Provider: Anabella Alejo Consult Reason/Comments: Abnormal V/Q, pleuritic chest pain Do you want consulting provider notified?: Yes Primary care physician: Cyril Villar MD Hospital Course: Discharge diagnoses; Chest pain Palpitations History of recent miscarriage Hyperlipidemia Hospital course; patient is a 38-year-old lady with past medical history significant for hyperlipidemia who presented to the ER because of chest pain and palpitation. Patient stated she has been dealing with cough and upper respiratory infection for the last 2 weeks. Patient stated that she was having cough and congestion for which she went to the urgent care twice and was checked for viral infections and they were negative. Patient stated that she started noticing that she was having chest pain that was present on sides, sharp, aggravated by taking deep breaths, no radiation of this chest pain. Patient was also complaining of palpitation at the time, denies any swelling of feet. There is no clear orthopnea or PND. There is open no fever or chills. Patient does admit to recent travels. Patient also underwent recent miscarriage and has been having genital bleeding. Patient was being followed up outpatient by [facility] with last beta-hCG somewhere in 200. Because of this chest pain and palpitation, patient presented the ER Initial lab work done in the ER showed WBC 10.3, hemoglobin 13.5, platelet count 343, D-dimer 0.64, sodium 130, potassium 4.1, BUN 8, creatinine 0.57, CRP 15, total protein 7.6, Positive repeat hCG UA negative for any infection VQ scan done showed questionable small perfusion defect right middle lobe. EKG done in the ER showed heart rate of 110, no ST segment elevation or depression seen, no T-wave inversions seen. Chest x-ray done in the ER showed no acute cardiopulmonary process Patient admitted to internal medicine service 03/14. Patient seen and examined. Pulmonology and cardiology both aware of the patient. Duplex ultrasound lower extremities was negative for DVT, patient declined CTA chest saying that she is allergic to contrast and does not want to go through allergy prophylaxis prep. Cardiology evaluated, ordered 2D echo which showed normal systolic function. Cardiology and pulmonology both cleared the patient for discharge PHYSICAL EXAMINATION: GENERAL: The patient is alert and oriented x3, not in any acute distress. Well d eveloped, well nourished. HEENT: Pupils are round and equally reacting to light. EOMI. No scleral icterus. No conjunctival pallor. Normocephalic, atraumatic. No pharyngeal erythema. No thyromegaly. CARDIOVASCULAR: S1 and S2 present. No murmurs, rubs, or gallops. PULMONARY: Chest is clear to auscultation, no wheezing or crackles. ABDOMEN: Soft, nontender, nondistended, normoactive bowel sounds. No palpable organomegaly. MUSCULOSKELETAL: No joint swelling or deformity. EXTREMITIES: No cyanosis, clubbing, or pedal edema. NEUROLOGICAL: Gross neurological examination did not reveal any focal deficits. SKIN: No rashes. Dictation was produced using [employer] dictation software. please excuse any grammatical, word or spelling errors. Patient Condition at Discharge: Stable Plan - Discharge Summary Discharge Rx Participant: No New Discharge Prescriptions: Continue Cholecalciferol (Vitamin D3) [Vitamin D3 (50 Mcg = 2000 Iu)] 50 mcg PO DAILY Aspirin EC [Ecotrin Low Dose] 81 mg PO DAILY Ascorbic Acid [Vitamin C] 1,000 mg PO DAILY Discharge Medication List Ascorbic Acid [Vitamin C] 1,000 mg PO DAILY 03/13/24 [History] Aspirin EC [Ecotrin Low Dose] 81 mg PO DAILY 03/13/24 [History] Cholecalciferol (Vitamin D3) [Vitamin D3 (50 Mcg = 2000 Iu)] 50 mcg PO DAILY [History] Follow up Appointment(s)/Referral(s): Anabella Alejo MD [STAFF PHYSICIAN] - 1 Week Cyril Villar MD [Primary Care Provider] - 1-2 days Discharge Disposition: HOME SELF-CARE
[2024-03-14 14:55] VITALS: BP 103/68; PULSE 95
--- NOTE | 2024-03-16 09:09 | PN ---
PROGRESS NOTE SUBJECTIVE: Dennis is a 38-year-old lady who is admitted to hospital with pleuritic chest pain and tachycardia, and we were consulted for tachycardia. She had a V/Q scan that was unsure about a pulmonary embolism, had been seen by a wire steward who recommended a CT angiogram. Also did have a Doppler of the lower extremities that is negative for DVT, and it is my understanding that the patient had declined CT chest. This morning, she is feeling much better. Her tachycardia has improved. PHYSICAL EXAMINATION: VITAL SIGNS: Blood pressure is 99/61, respiratory rate is 18, O2 saturation is 98% on room air. NECK: There is no jugular venous distention. Carotid upstroke is normal. There is no bruit. CHEST: Good air entry bilaterally. HEART: First and second heart sounds. No gallop. No murmur. ABDOMEN: Soft. EXTREMITIES: Did not reveal any edema. Peripheral pulses are felt. ASSESSMENT: Sinus tachycardia, probably multifactorial, including recent respiratory illness, suspected loss. PLAN: I will follow the echocardiogram today. MMODL / IJN: [id number] /
== END 2024-03-14 15:34 | disposition home or self-care (01) ==
LOC: EC 16:41 → 6NMEDSUR 22:16
PROVIDERS: ADMIT Internal Medicine; ATTEND Internal Medicine
DX: R07.81 Pleurodynia (principal); R79.89 Other specified abnormal findings of blood chemistry; E78.5 Hyperlipidemia, unspecified; J06.9 Acute upper respiratory infection, unspecified; Q21.12 Patent foramen ovale; F17.290 Nicotine dependence, other tobacco product, uncomplicated; N93.9 Abnormal uterine and vaginal bleeding, unspecified; Z79.82 Long term (current) use of aspirin; Z79.899 Other long term (current) drug therapy; Z87.59 Personal history of other complications of pregnancy, childbirth and the puerperium; Z91.041 Radiographic dye allergy status
CPT/HCPCS: 99285; 36415; 93005; 93306; 85379; 80053; 80048; 84484 ×2; 85025 ×2; 85610; 85730; 86140; 81003; 84702; 71046; 93970; 78580; G0378 ×3; A9540